=== PATIENT | male | born 1950 | race Caucasian/White ===

== ENCOUNTER 2023-03-02 11:15 | Outpatient (RCR) | payer MEDICARE, SELFPAY | END 2023-06-30 23:59 | disposition home or self-care (01) | PROVIDERS: PCP Student in an Organized Health Care Education/Training Program; Visit Provider Physician Assistant | DX: M48.02 Spinal stenosis, cervical region (principal); Z51.89 Encounter for other specified aftercare | CPT/HCPCS: 97035; 97140; 97162 ==

== ENCOUNTER 2023-11-16 14:27 | Emergency (ER) | payer MEDICARE, SELFPAY ==
[2023-11-16] VITALS (13 sets, daily range): BP systolic 157–184; BP diastolic 82–91; PULSE 63–74; RESP 16–18; TEMP 36.7; O2SAT 96–99; BMI 27.3
--- NOTE | 2023-11-16 14:59 | XR_ITS ---
Patient: ISAAC STORY Facility:?[facility] Patient ID:?[id number] Site Patient ID:?[id number]. Site :?1950 Study:?XRay-Chest 2V-11/16/2023 3:23:29 PM Ordering Physician:?DR. HE Final Report: INDICATION: FELL, CHEST/NECK PAIN TECHNIQUE: Chest 2 views COMPARISON: 06/07/2021 FINDINGS: Lungs clear with the exception of mild areas of scarring. Cardiac silhouette is mildly enlarged. There is tortuosity of the aorta. Chronic changes at the right shoulder. IMPRESSION: No acute findings. Dictated by Charles Sabillon MD @ 11/16/2023 3:53:42 PM Signed by:?Charles Sabillon MD @11/16/2023 3:53:42 PM (Electronic Signature)
--- NOTE | 2023-11-16 15:22 | ED_ITS ---
HPI - General Adult General Date Seen: 11/16/23 Chief complaint: Fall/Minor Trauma Stated complaint: Fell, chest/neck pain Time Seen by Provider: 11/16/23 15:20 History of Present Illness HPI narrative: Very pleasant 73-year-old male with a past medical history of cervical degenerative disc disease and arthritis, but otherwise generally pretty healthy. Uses medical marijuana, vitamins, but no other medications. No blood thinners. He had an inadvertent slip and fall on the ice when he was trying to clean up the snow in his driveway. He fell about 12 30 this afternoon. He struck forcefully on the ground and landed on his right side. He felt and heard a snap in his right anterolateral lower ribs. He also hit his head against the ground and was momentarily dazed. He does not think he lost consciousness. He broke his glasses but did not cut his face. Since falling he was able to get up on his own and walk back inside. He has had mild headache. Significant pain on the right posterolateral side of his neck but no pain radiating down his arm. Mild pain in the right distal clavicle and shoulder. His most significant pain is in the right anterolateral ribs. He is having tremendous pain with movement and with breathing. He took 800 mg ibuprofen at home but it is not helping with pain control. He is not short of breath. No bruising or rash on his ribs. No underlying lung disease. No mid or low back pain. No hip pain or pelvic pain. No injury to his left upper extremity. No injury to his legs. Related Data Allergies Allergy/AdvReac Type Severity Reaction Status Date / Time No Known Drug Allergies Allergy Verified 11/16/23 14:36 Exam Narrative: Exam Narrative: Constitutional: Appears well-developed and well-nourished. Alert. Conversant. Non toxic. He is uncomfortable and bracing his ribs with blankets. He politely declines pain meds because he wants to drive himself and his son home. Accompanied by his autistic adult age son. HENT: Head: Small abrasion on right lateral supraorbital ridge. No laceration.. No depressed skull fracture, Raccoon Eyes, Mack's sign, or hemotympanum. Face normal. TMs normal Nose: Nose normal. Mouth/Throat: Oral mucosa is clear and moist. no trismus. Pharynx normal. Tonsils symmetric. No tonsillar enlargement, erythema, or exudate. Eyes: Conjunctivae normal. EOM normal. Pupils equal, round, and reactive to light. No scleral icterus. Neck: He does have posterior tenderness most over the right cervical paraspinous muscles but also including the midline. No step-off. Normal range of motion. Neck supple. No tracheal deviation present. Cardiovascular: Normal rate, regular rhythm. No gallop. No friction rub. No murmur heard. Symmetric radial artery pulses Pulmonary/Chest: Effort normal. No stridor. No respiratory distress. No wheezes. No rales. No rhonchi . Marked right anterior lower rib edge tenderness no definite crepitus. Abdominal: Soft. Bowel sounds normal. No distension. No mass. He does have right upper quadrant tenderness, just inferior to where his ribs are painful.. No rebound. No guarding. Musculoskeletal: RUE: Normal range of motion. No tenderness. No deformity LUE: Normal range of motion. No tenderness. No deformity RLE: Normal range of motion. No edema. No tenderness. No deformity LLE: Normal range of motion. No edema. No tenderness. No deformity Neurological: Mental status normal. Attention normal. Alert and oriented x3. GCS 15. Memory normal. Speech fluent. Cognition normal. Cranial Nerves intact II-XII except I did not formally test gag or visual acuity. EOMI. Palate elevates symmetrically and tongue protrudes in the midline. Strength: 5/5 trapezius on the right and left 5/5 deltoid on the right and left 5/5 biceps on the right and left 5/5 triceps on the right and left 5/5 frequency checker on the right and left 5/5 thumb opposition on the right and le ft 5/5 finger abduction on the right and le ft 5/5 hip flexors (L3) on the right and le ft 5/5 quadriceps (L4) on the right and lef t 5/5 tibialis anterior on the right and l eft 5/5 EHL (L5) on the right and left 5/5 gastrocnemius (S1) on the right and left 5/5 hamstring on the right and left Sensation intact to light touch in both upper extremities (C4-T1) Sensation intact to light touch in Both lower extremities (L4-S1). Finger to nose and coordination normal. Gait normal. Skin: Skin is warm and dry. No rash noted. No pallor. Normal capillary refill. Psychiatric: Normal mood. Normal affect. Const: Vital Signs, click to edit/add: Vital Signs - 24 hr 11/16/23 14:29 Temperature 98.0 F Pulse Rate [Right Pulse Oximeter] 71 Respiratory Rate 16 Blood Pressure [Le ft Upper Arm] 159/83 H Pulse Oximetry 99 Oxygen Delivery Me thod Room Air Course Vital Signs Vital signs: Initial Vital Signs Temperature 98.0 F 11/16/23 14:29 Temperature Source Temporal Artery Scan 11/16/23 14:29 Pulse Rate 71 11/16/23 14:29 Pulse Rhythm Regular 11/16/23 14:29 Pulse Strength 3+ Normal 11/16/23 14:29 Respiratory Rate 16 11/16/23 14:29 Blood Pressure 159/83 H 11/16/23 14:29 Blood Pressure Mean 108 H 11/16/23 14:29 Blood Pressure Position Sitting 11/16/23 14:29 Pulse Oximetry 99 11/16/23 14:29 Oxygen Delivery Method Room Air 11/16/23 14:29 Vital Signs Temperature 98.0 F 11/16/23 14:29 Pulse Rate 71 11/16/23 14:29 Respiratory Rate 16 11/16/23 14:29 Blood Pressure 159/83 H 11/16/23 14:29 Pulse Oximetry 99 11/16/23 14:29 Oxygen Delivery Method Room Air 11/16/23 14:29 Temperature 98.0 F 11/16/23 14:29 Pulse Rate 71 11/16/23 14:29 Respiratory Rate 16 11/16/23 14:29 Blood Pressure 159/83 H 11/16/23 14:29 Pulse Oximetry 99 11/16/23 14:29 Oxygen Delivery Method Room Air 11/16/23 14:29 Medical Decision Making MDM Narrative Medical decision making narrative: Very pleasant 73-year-old gentleman came to the ER today for evaluation of injuries, specifically right anterolateral lower rib pain, after he had a mechanical slip and fall on the ice of his driveway this afternoon. He did hit his head and was briefly dazed but did not have loss of consciousness in the fall. He has mild headache but is otherwise neurologically intact. He is not anticoagulated. Given age and head trauma I have ordered a noncontrast head CT to evaluate for intracranial injuries. He also has an exacerbation of pre-existing neck pain that is primarily in the right cervical paraspinous muscles but also involves the midline. C-spine cannot be cleared by clinical criteria due to his midline pain. I have ordered a C-spine CT. He does not have any other evidence for pelvic fracture or other long bone extremity fracture. His primary site of pain in his right anterior lateral ribs. They are exquisitely tender. No clear evidence for fracture on exam. Chest x-ray shows no obvious rib fracture and no visible hemothorax or pneumothorax by my read. With the amount of tenderness he is having I am clinically very suspicious that he has at least 1 right-sided rib fracture. He is also tender the right upper quadrant. Unclear if this represents liver injury or just referred pain from the rib fracture. I have ordered a chest CT to further evaluate his rib fractures and rule out other internal injury such as occult pneumothorax, or liver injury. Kidney function is normal. Blood pressure is not hypotensive. Oxygen vitals are stable. Discussed with my partner Dr. Govea. He will follow up on the results of the CT of the patient's head, C-spine, and chest. If they are normal he will be able to discharge home. I have written presumptive prescriptions for hydrocodone (12 tablets) and Zofran for symptomatic support at home. Although he is quite uncomfortable, he politely declines any opiate analgesics here in the ER because he wants to drive his own vehicle home. Lab Data Labs: Lab Results 11/16/23 Range/Units 15:55 POC Creatinine 1.2 (0.6-1.3) mg/dl Discharge Plan Discharge Clinical Impression: Closed rib fracture Patient Disposition: Home, Self-Care Condition: Stable Instructions: Rib Fracture (ED) Additional Instructions: As we discussed, rib fractures can take several weeks to heal. Try to control the pain with hqjv-aim-txzldga medications such as ibuprofen or Tylenol. Use prescription pain killers ([place]) if needed. Use caution with prescription pain killers because they can cause drowsiness, dizziness, constipation, and can be addictive. Try to do deep breathing exercises a couple of times per day to help prevent pneumonia or other complications in your lungs. If you have any worsening pain, trouble breathing, cough, high fever, or any other new concerning symptoms come back to the ER right away to be rechecked. Follow Up/Referrals: GOLD ESQUIVEL DO [Primary Care Provider] - Stand Alone Forms: [employer] Info Instructions
--- NOTE | 2023-11-16 15:34 | CT_ITS ---
Patient: ISAAC STORY Facility:?[facility] Patient ID:?[id number] Site Patient ID:?[id number]. Site :?1950 Study:?CT-Spine Cervical WO-11/16/2023 5:08:00 PM Ordering Physician:ANISA Final Report: INDICATION: Fall, pain TECHNIQUE: CT cervical spine without contrast. COMPARISON: None FINDINGS: Multilevel degenerative changes are present. There is no fracture. The odontoid is intact. The anterior arch of C1 and occipital condyles are maintained. The mastoid air cells and middle ear cavities are within normal limits. Visualized upper ribs are intact. IMPRESSION: No cervical spine fracture. Please note that all CT scans at this facility use dose modulation, iterative reconstruction, and/or weight-based dosing when appropriate to reduce radiation dose to as low as reasonably achievable. Dictated by Charles Sabillon MD @ 11/17/2023 11:42:57 AM Signed by:?Charles Sabillon MD @11/17/2023 11:42:57 AM (Electronic Signature)
--- NOTE | 2023-11-16 15:34 | CT_ITS ---
Patient: ISAAC STORY Facility:?[facility] Patient ID:?[id number] Site Patient ID:?[id number]. Site :?1950 Study:?CT-Head WO-11/16/2023 5:06:29 PM Ordering Physician:ANISA Final Report: INDICATION: Fall COMPARISON: none TECHNIQUE: A CT volumetric acquisition was performed of the brain without IV contrast. Please note that all CT scans at this facility use dose modulation, iterative reconstruction, and/or weight-based dosing when appropriate to reduce radiation dose to as low as reasonably achievable. FINDINGS: No intracranial hemorrhage is present. Chronic white matter changes noted. No extra-axial fluid collection. No hydrocephalus or midline shift. There is no fracture. Sinuses are clear. IMPRESSION: No intracranial hemorrhage. Please note that all CT scans at this facility use dose modulation, iterative reconstruction, and/or weight-based dosing when appropriate to reduce radiation dose to as low as reasonably achievable. Dictated by Charles Sabillon MD @ 11/17/2023 11:41:13 AM Signed by:?Charles Sabillon MD @11/17/2023 11:41:13 AM (Electronic Signature)
--- NOTE | 2023-11-16 15:34 | CT_ITS ---
Patient: ISAAC STORY Facility:?[facility] Patient ID:?[id number] Site Patient ID:?[id number]. Site :?1950 Study:?CT-Chest W/ ISOVUE 370-11/16/2023 5:09:25 PM Ordering Physician:ANISA Final Report: Indication: RIGHT LOWER CHEST PAIN FALL Technique: Postcontrast CT chest. 75 cc Isovue 370 intravenous contrast. Please note that all CT scans at this facility use dose modulation, iterative reconstruction, and/or weight-based dosing when appropriate to reduce radiation dose to as low as reasonably achievable. Comparison: 12/10/2019 Findings: Mild dependent areas of atelectasis or scarring noted within both lung bases. No pleural effusion, pulmonary contusion or pneumothorax. No infiltrate or edema. The thyroid is unremarkable. Atherosclerotic changes. Simple cysts regarding both visualized kidneys. No hiatal hernia. No fracture. Impression: No acute findings. The right lower ribcage is intact. Please note that all CT scans at this facility use dose modulation, iterative reconstruction, and/or weight-based dosing when appropriate to reduce radiation dose to as low as reasonably achievable. Dictated by Charles Sabillon MD @ 11/17/2023 2:34:14 PM Signed by:?Charles Sabillon MD @11/17/2023 2:34:14 PM (Electronic Signature)
[2023-11-16 16:01] LABS: Creatinine, Point-of-Care* 1.2 mg/dl (0.6-1.3)
== END 2023-11-16 19:59 | disposition home or self-care (01) ==
PROVIDERS: Emergency Medicine; Emergency Provider Emergency Medicine Emergency Medical Services; PCP Student in an Organized Health Care Education/Training Program
DX: S22.31XA Fracture of one rib, right side, initial encounter for closed fracture (principal); W00.9XXA Unspecified fall due to ice and snow, initial encounter; Y93.H1 Activity, digging, shoveling and raking
CPT/HCPCS: 70450; 71046; 71260; 72125; 82565; 93005; 99283; 99284; 99285; Q9967

== ENCOUNTER 2024-02-16 11:00 | Outpatient (RCR) | payer MEDICARE, SELFPAY | END 2024-05-28 16:24 | disposition home or self-care (01) | PROVIDERS: PCP Student in an Organized Health Care Education/Training Program; Visit Provider Family Medicine Addiction Medicine | DX: M47.812 Spondylosis without myelopathy or radiculopathy, cervical region (principal); M54.12 Radiculopathy, cervical region; M25.511 Pain in right shoulder; M54.2 Cervicalgia; G89.29 Other chronic pain; Z51.89 Encounter for other specified aftercare | CPT/HCPCS: 97032; 97035; 97140; 97162 ==

== ENCOUNTER 2024-04-25 05:33 | Outpatient (CLI) | payer MEDICARE, SELFPAY | END 2024-04-25 05:34 | disposition home or self-care (01) | LOC: AMB 04-29 18:59 | PROVIDERS: PCP Student in an Organized Health Care Education/Training Program; Visit Provider Family Medicine | DX: S79.911A Unspecified injury of right hip, initial encounter (principal); W01.0XXA Fall on same level from slipping, tripping and stumbling without subsequent striking against object, initial encounter; Y92.008 Other place in unspecified non-institutional (private) residence as the place of occurrence of the external cause | CPT/HCPCS: A0425; A0427 ==

== ENCOUNTER 2024-04-25 06:13 | Emergency (ER) | payer MEDICARE, SELFPAY ==
[2024-04-25] VITALS (7 sets, daily range): BP systolic 154–168; BP diastolic 78–84; PULSE 56–65; RESP 18–20; TEMP 36.8; O2SAT 95–99; BMI 26.5
--- NOTE | 2024-04-25 06:26 | ED_ITS ---
HPI - General Adult General Chief complaint: Hip Injury/Pain Stated complaint: Hip pain Time Seen by Provider: 04/25/24 06:25 History of Present Illness HPI narrative: CC: Right Hip Pain pt. was traveling 5 days ago when he fell hurting left hip. comes in today d/t right hip pain. h/o bilateral hip surgery. able to put a little weight on right leg. pedal pulses intact bilaterally. ems gave 50mcg fentanyl which brought pain from 10 to 5. 74-year-old man presenting to the emergency department with concern of hip pain specifically the right. He 5 days ago he thought he had just moved strangely that maybe he had caught it and since then it his only escalated in pain. Stay though he did have a mild fall in the grass ?rolled? but that was not really something he thought probably caused much trouble for him or was injurious. Posterior lateral hip is just in very painful. When he goes to stand or straightens his leg it just spasms. No back pain and no radiating pain beyond the knee. History of bilateral hip replacements. No redness fever or swelling apart from the spasming Related Data Home Medications ?Medication ?Instructions ?Recorded ?Confirmed allopurinol 300 mg tablet 300 mg PO Q12H 04/25/24 04/25/24 tamsulosin 0.4 mg capsule 0.4 mg PO DAILY 04/25/24 04/25/24 Allergies Allergy/AdvReac Type Severity Reaction Status Date / Time doxycycline Allergy Severe Hives, Verified 04/25/24 08:18 Vomiting Review of Systems Status of ROS: Reports: 6 or more systems reviewed and unremarkable except as noted in History and below PFSH [facility] Social History Smoking Status: Never smoker Second hand tobacco smoke exposure: No How often do you have a drink containing alcohol: never AUDIT-C Alcohol total score: 0 Non-prescribed substance use: denies use Exam Narrative: Exam Narrative: Pleasant. NAD. Skin is warm and dry. No swelling or erythema. Abdomen is soft. Back is nontender. Is well-perfused peripherally. Well muscled. There is some discomfort to palpation in the posterior lateral right hip. Pain escalates a good deal when he tries to move his thigh though not with minor rotation. When he activates his muscles is where he starts to have more pain. Const: Vital Signs, click to edit/add: Vital Signs - 24 hr 04/25/24 06:16 04/25/24 06:17 04/25/24 06:36 Temperature 98.2 F Pulse Rate [Bilate ral Posterior Tibi al] 65 Pulse Rate [Right Pulse Oximeter] 65 Respiratory Rate 20 Blood Pressure [Le ft Upper Arm] 155/83 H Pulse Oximetry 99 99 Oxygen Delivery Me thod Room Air 04/25/24 06:38 04/25/24 08:17 04/25/24 08:36 Temperature 98.2 F Pulse Rate [Bilate ral Posterior Tibi al] Pulse Rate [Right Pulse Oximeter] 58 L Respiratory Rate 18 Blood Pressure [Le ft Upper Arm] 168/78 H Pulse Oximetry 95 Oxygen Delivery Me thod Room Air Documenting provider has reviewed patient's vital signs: yes Course Vital Signs Vital signs: Initial Vital Signs Pulse Rate 65 04/25/24 06:16 Vital Signs Pulse Rate 65 04/25/24 06:16 Temperature 98.2 F 04/25/24 06:38 Pulse Rate 58 L 04/25/24 08:17 Respiratory Rate 18 04/25/24 08:17 Blood Pressure 168/78 H 04/25/24 08:36 Pulse Oximetry 95 04/25/24 08:17 Oxygen Delivery Method Room Air 04/25/24 08:17 Medications Administered Medications: Discontinued Medications Generic Name Dose Route Start Last Admin Trade Name Keatonq PRN Reason Stop Dose Admin Hydrocodone Bitart/Acetaminophen 2 tab 04/25/24 08:01 04/25/24 08:16 Hydrocodone-Acetamin 5-325 Mg 1 Tab PO 04/25/24 08:02 2 tab ONCE ONE Administration Hydromorphone HCl 0.5 mg 04/25/24 06:31 04/25/24 06:41 Hydromorphone 0.5 Mg/0.5 Ml Inj IVP 04/25/24 06:32 0.5 mg ONCE ONE Administration Hydromorphone HCl 0.5 mg 04/25/24 09:22 04/25/24 09:43 Hydromorphone 0.5 Mg/0.5 Ml Inj IVP 04/25/24 09:23 0.5 mg ONCE ONE Administration Sodium Chloride 1,000 mls @ 1,000 mls/hr 04/25/24 06:31 04/25/24 07:03 0.9 % Sodium Chloride 1000 Ml IV 04/25/24 07:30 1,000 mls/hr .Q1H ONE Administration Ketorolac Tromethamine 30 mg 04/25/24 06:31 04/25/24 06:38 Ketorolac 30 Mg/Ml Inj IVP 04/25/24 06:32 30 mg ONCE ONE Administration Medical Decision Making MDM Narrative Medical decision making narrative: This is not appear to be a vascular issue. Has bilateral hip replacements so would seem that there is less to go wrong. Perhaps hardware has loosened or there is some subtle fracture, but there was no major traumatic event. Perhaps this is a bursal irritation resulting secondary muscle spasm; greater trocha nteric bursitis. Is not reliably reproducible in typical area of palpation for this. Do not see any outward indication of infection. Will do x-ray looking for anything unusual By my read x-rays of the right hip and pelvis do show intact bilateral hardware with extensive bony arthritic changes Did receive pain medication. Was up to the bathroom and causing a great deal of pain with ambulation. On repeat exam does feel a tight with flexion. Still with not really reproducible pain. Exacerbated primarily with movement of his leg but particular with weight-bearing. Not convinced that this is within the joint itself. Not sure that CT imaging would be helpful here in part due to all the scattered that would be created. I did speak with orthopedics on-call. Hoping to arrange follow-up. Will be giving a couple tabs of [place] and crutches and reassessing mobility and anticipating close orthopedic follow-up. Gave handout on trochanteric bursitis CBC is reassuring for lack of infection though I suppose does not exactly exclude that. See patient discharge plan for further discussion. Medical Records Medical records reviewed: Yes I reviewed the patient's medical records Lab Data Labs: Lab Results 04/25/24 Range/Units 09:15 WBC 6.21 (4.50-11.00) K/uL RBC 4.54 (4.30-5.90) m/uL Hgb 14.1 (13.5-17.5) gm/dL Hct 41.9 (37.0-53.0) % MCV 92 (80-100) fL MCH 31 (26-34) pg MCHC 34 (32-36) gm/dL RDW Coeff of Christina 12.4 (11.5-15.5) % Plt Count 161 (140-440) K/uL Neut % (Auto) 76.9 H (42.0-72.0) % Lymph % (Auto) 12.7 L (20-44) % Dougherty % (Auto) 7.6 (0.0-11.0) % Eos % (Auto) 2.1 (0.0-7.0) % Baso % (Auto) 0.5 (0.0-3.0) % Neut # (Auto) 4.80 (1.7-7.0) K/uL Lymph # (Auto) 0.80 L (0.90-2.90) K/uL Dougherty # (Auto) 0.47 (0.00-0.90) K/UL Eos # (Auto) 0.13 (0.00-0.50) K/uL Baso # (Auto) 0.03 (0.00-0.30) K/uL Abs Immat Gran (auto) 0.01 (0.00-0.30) K/uL Imm/Tot Granulo (auto) 0.2 % Discharge Plan Discharge Clinical Impression: Hip pain Patient Disposition: Home w/ Parent or Adult Condition: Stable Additional Instructions: I spoke with orthopedics today. I anticipate them checking back with you in a day or so. I would call them to schedule follow-up as soon as possible. Phone number [phone] (I now hear you have an appointment today. Excellent) Hopefully with crutches can decrease some of the irritation that is resulting in your hip; give it a chance to rest. Percocet from [facility] Can take up to 800 mg of ibuprofen or up to 1000 mg of acetaminophen per dose. Alternative to ibuprofen you might take up to 500 mg of naproxen 2 times daily. Remember that each tablet of Percocet contains 325 mg of acetaminophen. Prescriptions: No Action tamsulosin 0.4 mg capsule 0.4 mg PO DAILY allopurinol 300 mg tablet 300 mg PO Q12H Follow Up/Referrals: GOLD ESQUIVEL DO [Primary Care Provider] - Stand Alone Forms: [employer] Info Instructions
--- NOTE | 2024-04-25 06:31 | CRLHL7_ITS ---
For Patients: As a result of the Century Cures Act, medical imaging exams and procedure reports are released immediately into your electronic medical record. You may view this report before your referring provider. If you have questions, please contact your health care provider. INDICATION: Right hip pain COMPARISON: 03/01/2018 TECHNIQUE: AP pelvis, AP right hip, frog-leg right hip. FINDINGS: Limited positioning for the lateral view. Bilateral total hip arthroplasties. No acute or healing fracture. No periprosthetic fracture on the right. The entire component of the left femoral stem is not included in the field of view. Normal prosthesis alignment. Ekww-xbncddl-rgoi-right periprosthetic heterotopic ossification. Enthesitis around the pelvis. No destructive focal bone lesions. Soft tissues are normal. IMPRESSION: Right hip arthroplasty. No loosening or acute complications. Dictated by Liliana Dougherty MD @ 04/25/2024 7:06:58 AM (Electronically Signed)
[2024-04-25] MEDS: KETOROLAC 30 MG/ML inj IVP (06:38)
[2024-04-25] MEDS: HYDROmorphone 0.5 mg/0.5 ml inj IVP ×2 (06:41→09:43)
[2024-04-25] MEDS: 0.9 % SODIUM CHLORIDE 1000 ml 1,000 ML IV (07:03)
[2024-04-25] MEDS: HYDROCODONE-ACETAMIN 5-325 MG 1 TAB 2 TAB PO (08:16)
[2024-04-25 09:34] LABS: Basophils Absolute Auto 0.03 K/uL (0.00-0.30); Basophils Percent Auto 0.5 % (0.0-3.0); Eosinophils Absolute Auto 0.13 K/uL (0.00-0.50); Eosinophils Percent Auto 2.1 % (0.0-7.0); Hematocrit 41.9 % (37.0-53.0); Hemoglobin* 14.1 gm/dL (13.5-17.5); Immature Granulocytes Abs Auto 0.01 K/uL (0.00-0.30); Immature Granulocytes Pct Auto 0.2 %; Lymphocytes Percent Auto 12.7 % (20-44); Mean Corpuscular HGB Conc 34 gm/dL (32-36); Mean Corpuscular Hemoglobin 31 pg (26-34); Mean Corpuscular Volume 92 fL (80-100); Monocytes Absolute Auto 0.47 K/UL (0.00-0.90); Monocytes Percent Auto 7.6 % (0.0-11.0); Neutrophils Percent Auto 76.9 % (42.0-72.0); Platelet Count* 161 K/uL (140-440); RDW Coefficient of Variation % 12.4 % (11.5-15.5); Red Blood Count 4.54 m/uL (4.30-5.90); Slide Review Reflex No; White Blood Count* 6.21 K/uL (4.50-11.00)
== END 2024-04-25 10:22 | disposition home or self-care (01) ==
PROVIDERS: Emergency Provider Family Medicine; PCP Student in an Organized Health Care Education/Training Program
DX: M25.551 Pain in right hip (principal)
CPT/HCPCS: 36415; 73502; 85025; 94761; 96374; 96375; 96376; 99284; A9270; J1170; J1885; J7030

== ENCOUNTER 2024-06-07 11:00 | Outpatient (RCR) | payer MEDICARE, SELFPAY | END 2024-10-05 23:59 | disposition home or self-care (01) | PROVIDERS: PCP Student in an Organized Health Care Education/Training Program; Visit Provider Family Medicine | DX: M54.16 Radiculopathy, lumbar region (principal); M25.551 Pain in right hip; M54.50 Low back pain, unspecified; M54.30 Sciatica, unspecified side; M79.651 Pain in right thigh; R29.898 Other symptoms and signs involving the musculoskeletal system; Z51.89 Encounter for other specified aftercare | CPT/HCPCS: 97110; 97140; 97162 ==

== ENCOUNTER 2024-09-30 11:15 | Outpatient (RCR) | payer MEDICARE, SELFPAY ==
--- OUTSIDE RECORDS SUMMARY | 2024-09-19 11:21 | XMS_ITS ---
Author Organization [facility] - Primary Address [address] [place] [id number] Care Team Providers Care Clerical Production Worker Name Role Phone Different, PCP Primary Care Provider Villa Lovell Unavailable [phone] ALLERGIES No Known Allergies REASON FOR VISIT recert, Chronic pain MEDICATIONS Medication SIG (Take, Route, Frequency, Duration) Notes Start Date End Date Status albuterol 90 mcg/inh 2 puff(s) inhaled e very 6 hours for 30 day(s) Active Symbicort 160 mcg-4.5 mcg/inh 2 puff(s) inhaled 2 times a day for 30 day(s) Active Hydrocod/APAP 5/325MG 1 TO 2 TAB(S) ORAL LY Q 8 HOURS as needed Active allopurinol 300 mg 1/2 tab orally once a day Active timolol ophthalmic hemihydrate 0.5% 1 gtt in each affected eye 2 times a day for 30 day(s) Active latanoprost ophthalmic 0.005% 1 gtt in each eye once a day (in the evening) for 30 day(s) Active Encounters Encounter Location Date Provider Diagnosis [facility] - Primary [address] [place] [address] 10/24/2023 Villa Perez Chronic pain syndrome G89.4 ASSESSMENTS Encounter Date Diagnosis Assessment Notes Treatment Notes Treatment Clinical Notes 10/24/2023 Chronic pain syndrome (ICD-10 - G89.4) Recertified for medical cannabis on [facility] cannabis website according to [place] law Discussed orthopedic pillows and acupuncture, referred to Erlinda Eldridge PLAN OF TREATMENT Treatment Notes Assessment Notes Chronic pain syndrome Recertified for medical cannabis on [facility] cannabis website according to [place] herrera Discussed orthopedic pillows and acupuncture, referred to Erlinda Eldridge Next Appt Details Follow Up: 1 Year, Reason:
--- OUTSIDE RECORDS SUMMARY | 2024-09-19 11:21 | XMS_ITS ---
Author Organization [facility] - Primary Address [address] [place] [id number] Care Team Providers Care Network Associate Name Role Phone Different, PCP Primary Care Provider Villa Lovell Unavailable [phone] ALLERGIES No Known Allergies REASON FOR VISIT phone recert, Chronic pain MEDICATIONS Medication SIG (Take, Route, Frequency, Duration) Notes Start Date End Date Status albuterol 90 mcg/inh 2 puff(s) inhaled e very 6 hours for 30 day(s) Not-Taking Hydrocod/APAP 5/325MG 1 TO 2 TAB(S) ORAL LY Q 8 HOURS as needed Active latanoprost ophthalmic 0.005% 1 gtt in each eye once a day (in the evening) for 30 day(s) Active timolol ophthalmic hemihydrate 0.5% 1 gtt in each affected eye 2 times a day for 30 day(s) Active allopurinol 300 mg 1/2 tab orally once a day Active Symbicort 160 mcg-4.5 mcg/inh 2 puff(s) inhaled 2 times a day for 30 day(s) Not-Taking Encounters Encounter Location Date Provider Diagnosis [facility] - Primary [address] [place] [address] 08/20/2024 Villa Perez Chronic pain syndrome G89.4 ASSESSMENTS Encounter Date Diagnosis Assessment Notes Treatment Notes Treatment Clinical Notes 08/20/2024 Chronic pain syndrome (ICD-10 - G89.4) Recertified for medical cannabis on [facility] cannabis website according to [place] law PLAN OF TREATMENT Treatment Notes Assessment Notes Chronic pain syndrome Recertified for me dical cannabis on [facility] cannabis website according to [place] law Next Appt Details Follow Up: prn, Reason:
--- OUTSIDE RECORDS SUMMARY | 2024-09-19 11:22 | XMS_ITS | Continuity of Care Document ---
Author Name [facility] Organization [facility] Care Team Providers Care Airline Ticket Agent Name Role Phone [facility] Unavailable Unavailable Problems Combined list of problems from Department of Defense and Veterans Affairs facilities. It does not include entries that were removed or entered in error. Problem Status Onset Date Problem Type Date of Resolution Comments Source Exposure to potentially hazardous substance ([facility] [id number]) Active 12/08/19 24 Condition Dec 08, 2023 Entered By: GET MCPHERSON Comment: [facility] Documentation Initiative [facility] History of venous thromboembolic disease Active 10/02/19 21 Condition Sep 10, 2021 Entered By: IFTIKHAR JACK Comment: H/O PE in setting of COVID (06/2021) [facility] History of inactive tuberculosis Active 10/02/19 19 Condition Dec 16, 2021 Entered By: IFTIKHAR JACK Comment: S/P INH/thambutol/r ifampin/pyrzina mide for latent TB in 2018 [facility] Asthma Active Condition [facility] Cervical spondylosis Active Condition [facility] Chronic low back pain (SNOMED CT 141066085) Active Condition [facility] Glaucoma Active Condition [facility] Gout (SNOMED CT 97111913) Active Condition [facility] Hypertension (SNOMED CT 00229552) Active Condition [facility] Irritable bowel syndrome (SNOMED CT 76281214) Active Condition [facility] Osteoarthritis Active Condition Sep 012020 Entered By: IFTIKHAR JACK Comment: 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 Entered By: IFTIKHAR JACK Comment: S/P left total hip in 2019 [facility] Shoulder pain Active Condition [facility] Diagnosis: ICD-10-CM L03.039 Cellulitis of unspecified toe Active Diagnosis [facility] Diagnosis: ICD-10-CM M47.22 Other spondylosis with radiculopathy, cervical region Active Diagnosis [facility] Medications Combined list of outpatient medications from Department of Defense and Veterans Affairs facilities.Medications provided include 1) outpatient medications from the last 15 months, and 2) patient-reported medications. Medication Details Route Status Patient Instructions Prescription Expires Prescription Number Last Dispense Date Ordering Provider Order Date Order Qty Source ALBUTEROL 90MCG/ACTUA T (CFC-F) INHL,ORAL,8 .5GM DOSE COUNTER INHALE 1-2 PUFFS BY INHALATI ON EVERY 4 HOURS NEEDED FOR SHORTNES S OF BREATH SHAKE WELL (FOR IMMEDIAT E RELIEF) RESPIR ATORY (INHAL ATION) DISCONT INUED 07/14/2024 [id number] LUIS BENSON 2022 2 [facility] ALLOPURINOL TAB TAKE 150MG BY MOUTH EVERY DAY ORAL ACTIVE TEA GRIFFIN 2023 [facility] BUDESONIDE/ FORMOTEROL INHL,ORAL INHALE BY INHALATI ON RESPIR ATORY (INHAL ATION) ACTIVE TEA GRIFFIN 2023 [facility] CEFADROXIL 500MG CAP TAKE 2 CAPSULES BY MOUTH TWICE A DAY ORAL ACTIVE TEA GRIFFIN 2023 [facility] FLUTICASONE 100MCG/SALM ETEROL 50MCG INHL,ORAL,D ISKUS,60 INHALE 1 PUFF BY INHALATI ON TWICE A DAY *RINSE MOUTH AFTER EACH USE* RESPIR ATORY (INHAL ATION) DISCONT INUED 07/14/2024 [id number] LUIS BENSON 2022 3 [facility] HYDROCODONE 5/ACETAMINO PHEN 325MG TAB TAKE BY MOUTH ORAL ACTIVE TEA GRIFFIN 2023 [facility] LATANOPROST 0.005% SOLN,OPH INSTILL 1 DROP IN BOTH EYES AT BEDTIME OPHTHA LMIC ACTIVE DENZEL JACK 2021 [facility] MUPIROCIN 2% OINT,TOP APPLY THIN LAYER TOPICALL Y THREE TIMES A DAY TOPICA L ACTIVE TEA GRIFFIN 2023 [facility] SILDENAFIL CITRATE 100MG TAB TAKE ONE TABLET BY MOUTH PRN_EREC ORAL ACTIVE DIAMOND MOSS H 2020 [facility] SILDENAFIL TAB TAKE BY MOUTH ONCE NEEDED ORAL ACTIVE TEA GRIFFIN 2023 [facility] TAMSULOSIN HCL 0.4MG CAP TAKE 1 CAPSULE BY MOUTH EVERY DAY ORAL ACTIVE GABY TEA M 2023 [facility] TIMOLOL MALEATE 0.5% SOLN,OPH,0. 3ML INSTILL 1 DROP IN BOTH EYES EVERY DAY OPHTHA LMIC ACTIVE DENZLE JACK R 2021 [facility] TIOTROPIUM 1.25MCG/ACT UAT INHL,ORAL,6 0D,4GM INHALE TWO PUFFS BY INHALATI ON EVERY DAY TO PREVENT TROUBLE BREATHIN G RESPIR ATORY (INHAL ATION) [facility] [id number] 3 LUIS BENSON 2022 3 [facility] TIZANIDINE HCL 4MG TAB TAKE ONE TABLET BY MOUTH EVERY 6 HOURS NEEDED ORAL ACTIVE GABY TEA 2023 [facility] Allergies, Adverse Reactions, Alerts Combined list of allergies from Department of Defense and Veterans Affairs facilities. It does not include entries that were removed or entered in error. Substance Category Reaction Severity Reaction type Status Date Reported Comments Source DOXYCYCLINE Propensity to adverse reactions to drug (finding) Anaphylaxis active 1 [facility] Immunizations Combined list of available immunizations from the Department of Defense and Veterans Affairs facilities. Immunization Series Date Given Administered By Site Reaction Lot Number CVX Code Drug Division Operations Manager Status Comments Source INFLUENZA, INJECTABLE, QUADRIVALENT, PRESERVATIVE FREE 2019 150 complet ed [facility] PNEUMOCOCCAL POLYSACCHARID E [id number] 2019 33 complet ed MerckShar p [id number] [facility] PNEUMOCOCCAL CONJUGATE PCV 13 2019 133 complet ed [facility] INFLUENZA, INJECTABLE, QUADRIVALENT, PRESERVATIVE FREE 2019 150 complet ed [facility] PNEUMOCOCCAL CONJUGATE PCV 13 2018 133 complet ed wyeth [id number] Exp. 11/22 [facility] HEP A-HEP B 2017 104 complet ed [facility] HEP A-HEP B 2017 104 complet ed [facility] HEP A-HEP B 2016 104 complet ed [facility] INFLUENZA, HIGH DOSE SEASONAL 2016 135 complet ed [facility] TYPHOID, VICPS 2016 101 complet ed [facility] INFLUENZA, HIGH DOSE SEASONAL 2015 135 complet ed [facility] TDAP 2013 115 complet ed glaxosmit hkline; [id number]; 6 [facility] INFLUENZA, SEASONAL, INJECTABLE 2012 141 complet ed [facility] TDAP 2012 115 complet ed [facility] ZOSTER LIVE 2011 121 complet ed merck 1733aa,11/05/2012 [facility] TDAP 2008 115 complet ed [facility] INFLUENZA, SEASONAL, INJECTABLE 2007 141 complet ed [facility] TD(ADULT) UNSPECIFIED FORMULATION 2005 139 complet ed [facility] Results Combined list of recent chemistry, hematology and other laboratory results from Department of Defense and Veterans Affairs, ranging from 15 months to all on record, depending upon the facility. Order Name Results Value Reference Range Date Interpretation Specimen Comments Source LIPID PANEL,NON -FASTING CHOLESTEROL [MASS/VOLUM E] IN SERUM OR PLASMA 160 mg/dL <199 - 199 07/25 Specimen Type: PLASMA No comment entered. Ordering Provider: JAQUAN MCFADDEN Report Released Date/Time: Jul 23, 2024 07:54 PM Reporting Lab: [facility] [address] Performing Lab: [facility] [address] [facility] LIPID PANEL,NON -FASTING CHOLESTEROL IN HDL [MASS/VOLUM E] IN SERUM OR PLASMA 44 mg/dL 40 07/25 Specimen Type: PLASMA No comment entered. Ordering Provider: JAQUAN MCFADDEN Report Released Date/Time: Jul 23, 2024 07:54 PM Reporting Lab: [facility] [address] Performing Lab: [facility] [address] [place] [facility] LIPID PANEL,NON -FASTING CHOLESTEROL IN LDL [MASS/VOLUM E] IN SERUM OR PLASMA BY CALCULATION 85 mg/dL <99 - 99 07/25 Specimen Type: PLASMA No comment entered. Ordering Provider: JAQUAN MCFADDEN Report Released Date/Time: Jul 23, 2024 07:54 PM Reporting Lab: [facility] [address] Performing Lab: [facility] [address] [place] [facility] LIPID PANEL,NON -FASTING CHOLESTEROL IN VLDL [MASS/VOLUM E] IN SERUM OR PLASMA BY CALCULATION 31 mg/dL <29 - 29 07/25 H Specimen Type: PLASMA No comment entered. Ordering Provider: JAQUAN MCFADDEN Report Released Date/Time: Jul 23, 2024 07:54 PM Reporting Lab: [facility] [address] Performing Lab: [facility] [address] [place] [facility] LIPID PANEL,NON -FASTING CHOLESTEROL NON HDL [MASS/VOLUM E] IN SERUM OR PLASMA 116 mg/dL <129 - 129 07/25 Specimen Type: PLASMA No comment entered. Ordering Provider: JAQUAN MCFADDEN Report Released Date/Time: Jul 23, 2024 07:54 PM Reporting Lab: [facility] [address] Performing Lab: [facility] [address] [place] [facility] LIPID PANEL,NON -FASTING TRIGLYCERID E [MASS/VOLUM E] IN SERUM OR PLASMA 155 mg/dL <149 - 149 07/25 H Specimen Type: PLASMA No comment entered. Ordering Provider: JAQUAN MCFADDEN Report Released Date/Time: Jul 23, 2024 07:54 PM Reporting Lab: [facility] [address] Performing Lab: [facility] [address] [place] [facility] CBC LEUKOCYTES [#/VOLUME] IN BLOOD BY AUTOMATED COUNT 6.2 4.0 - 11.0 07/25 Specimen Type: BLOOD No comment entered. Ordering Provider: JAQUAN MCFADDEN Report Released Date/Time: Jul 23, 2024 07:54 PM Reporting Lab: [facility] [address] Performing Lab: [facility] [address] [place] [facility] CBC ERYTHROCYTE S [#/VOLUME] IN BLOOD BY AUTOMATED COUNT 4.44 4.60 - 6.20 07/25 L Specimen Type: BLOOD No comment entered. Ordering Provider: JAQUAN MCFADDEN Report Released Date/Time: Jul 23, 2024 07:54 PM Reporting Lab: [facility] [address] Performing Lab: [facility] [phone] [place] [facility] CBC HEMOGLOBIN [MASS/VOLUM E] IN BLOOD 14.1 g/dL 13.5 - 17.9 07/25 Specimen Type: BLOOD No comment entered. Ordering Provider: JAQUAN MCFADDEN Report Released Date/Time: Jul 23, 2024 07:54 PM Reporting Lab: [facility] [address] Performing Lab: [facility] [address] [place] [facility] CBC HEMATOCRIT [VOLUME FRACTION] OF BLOOD BY AUTOMATED COUNT 42.1 41.0 - 54.0 07/25 Specimen Type: BLOOD No comment entered. Ordering Provider: JAQUAN MCFADDEN Report Released Date/Time: Jul 23, 2024 07:54 PM Reporting Lab: [facility] [address] Performing Lab: [facility] [address] [place] [facility] CBC MCV [ENTITIC VOLUME] BY AUTOMATED COUNT 94.8 fL 80.0 - 100.0 07/25 Specimen Type: BLOOD No comment entered. Ordering Provider: JAQUAN MCFADDEN Report Released Date/Time: Jul 23, 2024 07:54 PM Reporting Lab: [facility] [address] Performing Lab: [facility] [address] [place] [facility] CBC MCH [ENTITIC MASS] BY AUTOMATED COUNT 31.8 pg 27.0 - 33.0 07/25 Specimen Type: BLOOD No comment entered. Ordering Provider: JAQUAN MCFADDEN Report Released Date/Time: Jul 23, 2024 07:54 PM Reporting Lab: [facility] [address] Performing Lab: [facility] [address] [place] [facility] CBC MCHC [MASS/VOLUM E] BY AUTOMATED COUNT 33.5 g/dL 32.0 - 37.5 07/25 Specimen Type: BLOOD No comment entered. Ordering Provider: JAQUAN MCFADDEN Report Released Date/Time: Jul 23, 2024 07:54 PM Reporting Lab: [facility] [address] Performing Lab: [facility] [address] [facility] CBC PLATELETS [#/VOLUME] IN BLOOD BY AUTOMATED COUNT 199 150 - 400 07/25 Specimen Type: BLOOD No comment entered. Ordering Provider: JAQUAN MCFADDEN Report Released Date/Time: Jul 23, 2024 07:54 PM Reporting Lab: [facility] [address] Performing Lab: [facility] [address] [place] [facility] CBC PLATELET MEAN VOLUME [ENTITIC VOLUME] IN BLOOD BY AUTOMATED COUNT 10.0 fL 9.1 - 13.0 07/25 Specimen Type: BLOOD No comment entered. Ordering Provider: JAQUAN MCFADDEN Report Released Date/Time: Jul 23, 2024 07:54 PM Reporting Lab: [facility] [address] Performing Lab: [facility] [address] [place] [facility] CBC ERYTHROCYTE DISTRIBUTIO N WIDTH [RATIO] BY AUTOMATED COUNT 13.0 11.5 - 14.5 07/25 Specimen Type: BLOOD No comment entered. Ordering Provider: JAQUAN MCFADDEN Report Released Date/Time: Jul 23, 2024 07:54 PM Reporting Lab: [facility] [address] Performing Lab: [facility] [address] [place] [facility] BASIC METABOLIC PANEL+MG CREATININE [MASS/VOLUM E] IN SERUM OR PLASMA 1.0 mg/dL 0.7 - 1.2 07/25 Specimen Type: PLASMA No comment entered. Ordering Provider: JAQUAN MCFADDEN Report Released Date/Time: Jul 23, 2024 07:54 PM Reporting Lab: [facility] [address] Performing Lab: [facility] [address] [place] [facility] BASIC METABOLIC PANEL+MG UREA NITROGEN [MASS/VOLUM E] IN SERUM OR PLASMA 16 mg/dL 8 - 26 07/25 Specimen Type: PLASMA No comment entered. Ordering Provider: JAQUAN MCFADDEN Report Released Date/Time: Jul 23, 2024 07:54 PM Reporting Lab: [facility] [address] Performing Lab: [facility] [address] [place] [facility] BASIC METABOLIC PANEL+MG GLUCOSE [MASS/VOLUM E] IN SERUM OR PLASMA 82 mg/dL 70 - 100 07/25 Specimen Type: PLASMA No comment entered. Ordering Provider: JAQUAN MCFADDEN Report Released Date/Time: Jul 23, 2024 07:54 PM Reporting Lab: [facility] [address] Performing Lab: [facility] [address] [place] [facility] BASIC METABOLIC PANEL+MG SODIUM [MOLES/VOLU ME] IN SERUM OR PLASMA 140 mmol/L 136 - 145 07/25 Specimen Type: PLASMA No comment entered. Ordering Provider: JAQUAN MCFADDEN Report Released Date/Time: Jul 23, 2024 07:54 PM Reporting Lab: [facility] [address] Performing Lab: [facility] [address] [place] [facility] BASIC METABOLIC PANEL+MG POTASSIUM [MOLES/VOLU ME] IN SERUM OR PLASMA 4.6 mmol/L 3.5 - 5.1 07/25 Specimen Type: PLASMA No comment entered. Ordering Provider: JAQUAN MCFADDEN Report Released Date/Time: Jul 23, 2024 07:54 PM Reporting Lab: [facility] [address] Performing Lab: [facility] [address] [place] [facility] BASIC METABOLIC PANEL+MG CHLORIDE [MOLES/VOLU ME] IN SERUM OR PLASMA 107 mmol/L 98 - 107 07/25 Specimen Type: PLASMA No comment entered. Ordering Provider: JAQUAN MCFADDEN Report Released Date/Time: Jul 23, 2024 07:54 PM Reporting Lab: [facility] [address] Performing Lab: [facility] [address] [place] [facility] BASIC METABOLIC PANEL+MG CARBON DIOXIDE, TOTAL [MOLES/VOLU ME] IN SERUM OR PLASMA 29 mmol/L 22 - 29 07/25 Specimen Type: PLASMA No comment entered. Ordering Provider: JAQUAN MCFADDEN Report Released Date/Time: Jul 23, 2024 07:54 PM Reporting Lab: [facility] [address] Performing Lab: [facility] [address] [place] [facility] BASIC METABOLIC PANEL+MG CALCIUM [MASS/VOLUM E] IN SERUM OR PLASMA 9.1 mg/dL 8.4 - 10.2 07/25 Specimen Type: PLASMA No comment entered. Ordering Provider: JAQUAN MCFADDEN Report Released Date/Time: Jul 23, 2024 07:54 PM Reporting Lab: [facility] [address] Performing Lab: [facility] [address] [place] [facility] BASIC METABOLIC PANEL+MG MAGNESIUM [MASS/VOLUM E] IN SERUM OR PLASMA 2.2 mg/dL 1.6 - 2.6 07/25 Specimen Type: PLASMA No comment entered. Ordering Provider: JAQUAN MCFADDEN Report Released Date/Time: Jul 23, 2024 07:54 PM Reporting Lab: [facility] [address] Performing Lab: [facility] [address] [place] [facility] BASIC METABOLIC PANEL+MG ANION GAP IN SERUM OR PLASMA 4 mmol/L 5 - 15 07/25 L Specimen Type: PLASMA No comment entered. Ordering Provider: JAQUAN MCFADDEN Report Released Date/Time: Jul 23, 2024 07:54 PM Reporting Lab: [facility] [address] Performing Lab: [facility] [address] [place] [facility] BASIC METABOLIC PANEL+MG GLOMERULAR FILTRATION RATE/1.73 SQ M.PREDICTED [VOLUME RATE/AREA] IN SERUM, PLASMA OR BLOOD BY CREATININE- BASED FORMULA (CKD-EPI 2020) 78 60 07/25 Specimen Type: PLASMA No comment entered. Ordering Provider: JAQUAN MCFADDEN Report Released Date/Time: Jul 23, 2024 07:54 PM Reporting Lab: [facility] [address] Performing Lab: [facility] [address] [facility] Vital Signs Combined list of inpatient and outpatient Vital Signs from Department of [facility] and [facility], ranging from 12 months to all on record, depending upon the facility. Vital Sign Value Date Comments Source SYSTOLIC BLOOD PRESSURE 153 07/25/2024 12:26:02 [facility] DIASTOLIC BLOOD PRESSURE 70 07/25/2024 12:26:02 [facility] PULSE OXIMETRY 97 07/25/2024 12:26:02 [facility] WEIGHT 200.7 07/25/2024 12:26:02 [facility] BMI 28kg/m2 07/25/2024 12:26:02 [facility] PAIN 5 07/25/2024 12:26:02 [facility] TEMPERATURE 98.3 07/25/2024 12:26:02 [facility] PULSE 53 07/25/2024 12:26:02 [facility] RESPIRATION 16 07/25/2024 12:26:02 [facility] Encounters Combined list of: 1) Encounters from Department of Veterans Affairs facilities going back up to thelast 18 months. 2) Encounters from the Department of [facility] facilities going back up to 280 months. Location Location Details Encounter Type Encounter Number Reason For Visit Attending Provider ADM Date DC Date Status Disposition Source [facility] OFFICE O/P EST LOW 20-29 MIN [id number] Diagnos is: ICD-10- CM M47.22 Other spondyl osis with radicul opathy, cervica l region< br/> KARL BENSON 07/14 [facility] Outpatient Encounter [id number] 07/25 [facility] OFFICE O/P [place] HI 40 MIN [id number] Diagnos is: ICD-10- CM L03.039 Celluli tis of unspeci fied toe<br/ > Yojana GRIFFIN 07/25 [facility] Social History Combined list of available smoking, tobacco, and other social history from Department of Defense and Veterans Affairs facilities. Social History Type Response Date Comment Sour e Tobacco smoking status [facility]-TO[facility] QUIT 15 YRS OR MORE 07/25/2024 [facility] [place] 07/25/2024 [facility] of [facility] OR MORE 07/14/2023 [facility] [place] 08/25/2021 [facility] [place] of [place] 07/03/2020 [facility] [place] of [place] 04/17/2019 [facility] History of tobacco use FORMER TOBACCO US ER 7Y OR GREATER 10/14/2016 [facility] History of tobacco use FORMER TOBACCO US ER 7Y OR GREATER 09/04/2015 [facility] History of tobacco use FORMER TOBACCO US ER 7Y OR GREATER 02/18/2014 [facility] History of tobacco use FORMER TOBACCO US ER 7Y OR GREATER 10/05/2010 [facility]
--- OUTSIDE RECORDS SUMMARY | 2024-09-19 11:22 | XMS_ITS | Patient Health Record ---
Author Organization [facility] - Primary Address [address] [place] [address] Care Team Providers Care Clinical Social Work Therapist Name Role Phone Different, PCP Primary Care Provider Villa Lovell Unavailable [phone] ALLERGIES No Known Allergies REASON FOR REFERRAL No Information MEDICATIONS Medication SIG (Take, Route, Frequency, Duration) Notes Start Date End Date Status Symbicort 160 mcg-4.5 mcg/inh 2 puff(s) inhaled 2 times a day for 30 day(s) Not-Taking albuterol 90 mcg/inh 2 puff(s) inhaled e [...] 1/2 tab orally once a day Active SOCIAL HISTORY Sex Assigned At : Social History Observation Description Sex Assigned At Unknown PROBLEMS Problem Type ICD Code Onset Dates Problem Status W/U Status Risk SNOMED Code Notes Problem Chronic pain syndrome (G89.4) Active confirmed Chronic khai n syndrome (903734139) Problem Cervicalgia (M54.2) Active confirmed Cervicalgia (78358161) Encounters Encounter Location Date Provider Diagnosis [facility] Primary [address] [place] [id number] 10/24/2023 Villa Perez Chronic pain syndrome G89.4 [facility] - Primary [address] [place] [phone] 08/20/2024 Villa Perez Chronic pain syndrome G89.4 ASSESSMENTS Encounter Date Diagnosis Assessment Notes Treatment Notes Treatment Clinical Notes 10/24/2023 Chronic pain syndrome (ICD-10 - G89.4) Recertified for medical cannabis on [facility] cannabis website according to [place] law Discussed orthopedic pillows and acupuncture, referred to Erlinda Eldridge 08/20/2024 Chronic pain syndrome (ICD-10 - G89.4) Recertified for medical cannabis on [facility] cannabis website according to [place] law PLAN OF TREATMENT No Information Insurance Providers Payer Name Payer Address Payer Phone Subscriber Number Group Number Insured Name Patient Relationship to Insured Coverage Start Date Coverage End Date [employer] [address] [address] [place] [address] [id number] Gerardo Mccray Self - patient is the insured MEDICAL (GENERAL) HISTORY Medical History History ICD Code Gout neck pain Surgical History Surgery Date(Month/Year) cholecystectomy left hip replacement right hip replacement ankle Rt Hospitalization History Reason Date(Month/Year) [facility] ER sciatica severe pain 4 COVID-19 [facility]
--- OUTSIDE RECORDS SUMMARY | 2024-09-19 11:22 | XMS_ITS | Encounter Summary ---
Author Name [facility] [place] [facility] [place] Address [address] [place] [address] Care Team Providers Care Heel Seat Flap Stapler Name Role Phone JAQUAN MCFADDEN Primary [facility] Insurance Providers: All historical and current Section Date Range: From patient's date of to the date document was created. This section includes the names of all active insurance providers for the patient. Insurance Provider Type of Coverage Plan Name Start of Policy Coverage End of Policy Coverage Group Number Member ID Insurance Provider's Telephone Number Policy Winters's Name Patient's Relationship to Policy Winetrs [place] SUPPLEMEN [place] MEDIC ARE SUPPL EMENT May 02, 2019 [id number] MK STORY PATIENT [place] [facility] (WNR) MEDICARE ADVANTAGE SENIO R GOLD INDIV IDU Oct 02, 2016 [id number] [phone] KM STORY PATIENT [place] SUPPLEMEN [place] MEDIC ARE SUPPL EMENT May 02, 2019 [id number] MK STORY PATIENT MEDICARE (WNR) MEDICARE (M) PART A Apr 01, 2014 PART A [id number] [phone] MK STORY PATIENT MEDICARE (WNR) MEDICARE (M) PART B Apr 01, 2014 PART B [id number] [phone] MK STORY PATIENT Selected Encounter This section includes the information on record at VA for the Encounter. Date/Time Encounter Type Encounter Description Reason Pro vider Source IHE Encounter Template Text not used by VA
--- OUTSIDE RECORDS SUMMARY | 2024-09-19 11:22 | XMS_ITS | Encounter Summary ---
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 This section includes the names of all active insurance providers for the patient. Insurance Provider Type of Coverage Plan Name Start of Policy Coverage End of Policy Coverage Group Number Member ID Insurance Provider's Telephone Number Policy Winters's Name Patient's Relationship to Policy Winters [place] MEDICARE SUPPLEMEN [place] MEDIC ARE SUPPL EMENT May 02, 2019 [id number] MK STORY [place] [facility] (WNR) MEDICARE ADVANTAGE SENIO R GOLD INDIV IDU Oct 02, 2016 [id number] [phone] MK STORY PATIENT [place] MED[place] SUPPLEMEN [place] MEDIC ARE SUPPL EMENT May 02, 2019 [id number] MK STORY PATIENT MEDICARE (WNR) MEDICARE (M) PART A Apr 01, 2014 PART A [id number] MK STORY PATIENT MEDICARE (WNR) MEDICARE (M) PART B Apr 01, 2014 PART B [id number] MK STORY PATIENT Selected Encounter This section includes the information on record at [facility] for the Encounter. Date/Time Encounter Type Encounter Description Reason Provider Source Jul 25, 2024 01:00 PM OFFICE O/P EST HI 40 MIN PRIMARY CARE/MEDICINE ICD-10-CM L03.039 Cellulitis of unspecified toe GABY,DAVID ABE Nuria Yojana Encounter Template Text not used by [facility] Assessments - Encounter Diagnoses This section includes the primary and secondary diagnoses documented for the Encounter. Date/Time Primary/Secondary Diagnosis Diagnosis Name Provider Source Jul 25, 2024 01:23 PM PRIMARY Cellulitis of unspecified toe GABY,MOOKIE [facility] Jul 25, 2024 01:23 PM SECONDARY Essential (primary) [facility] Jul 25, 2024 01:23 PM SECONDARY Other spondylosis with radiculopathy, cervical region [facility] Jul 25, 2024 01:23 PM SECONDARY Unspecified asthma, uncomplicated [facility] Plan of Treatment: Future Appointments (+ 6 months) and Future Tests (+/- 45 days) The Plan of Treatment section includes future care activities for the patient from [facility]. This section includes future appointments and future orders which are active, pending or scheduled. Active, Pending, and Scheduled Orders This section includes a listing of several types of active, pending, and scheduled orders, including clinic medications orders, diagnostic test orders, procedure orders and consult orders; where the start date of the order is 45 days before the date of the Encounter or 45 days after the date of theEncounter. The data comes from all [place] treatment facilities. Test Date/Time Test Type Test Details Facility Name Jul 14, 2024 12:00 AM Laboratory - Chemistry Order COMPREHENSIVE METABOLIC PANEL+MG PLASMA SP ONCE [facility] Jul 14, 2024 12:00 AM Laboratory - Chemistry Order HEMOGLOBIN A1C BLOOD [facility] Jul 14, 2024 12:00 AM Laboratory - Chemistry Order LIPID PANEL,NON-FASTING PLASMA [facility] Lab Results: +/- 30 days of the encounter This section includes the Chemistry and Hematology Lab Results on record with AR for the patient. Radiology Reports and Pathology Reports are provided separately, in subsequent sections. Lab Results This section contains the Chemistry/Hematology Results that were resulted 30 days before or 30 daysafter the date of the Encounter. Date/Time Source Result Type Result - Unit Interpretation Reference Range Comment Jul 25, 2024 12:00 PM [facility] LIPID PANEL,NON-FASTING Specimen Type: PLASMA No comment entered. Ordering Provider: JAQUAN MCFADDEN Report Released Date/Time: Jul 23, 2024 07:54 PM Reporting Lab: [facility] [id number] Performing Lab: [facility] [id number] CHOLESTEROL 160 mg/dL <199 .HDL 44 mg/dL >40 LDL CALCULATION 85 mg/dL <99 VLDL CALCULATION 31 mg/dL H <29 NON HDL CHOLESTEROL 116 mg/dL <129 TRIG(NON FASTING) 155 mg/dL H <149 Jul 25, 2024 12:00 PM [facility] CBC Specimen Type: BLOOD No comment entered. Ordering Provider: JAQUAN MCFADDEN Report Released Date/Time: Jul 23, 2024 07:54 PM Reporting Lab: [facility] [id number] Performing Lab: [facility] [id number] WBC 6.2 4.0-11.0 RBC 4.44 L 4.60-6.20 HGB 14.1 g/dL 13.5-17.9 HCT 42.1 41.0-54.0 MCV 94.8 fL 80.0-100.0 MCH 31.8 pg 27.0-33.0 MCHC 33.5 g/dL 32.0-37.5 PLT 199 150-400 MPV 10.0 fL 9.1-13.0 RDW 13.0 11.5-14.5 Jul 25, 2024 12:00 PM [facility] BASIC METABOLIC PANEL+MG Specimen Type: PLASMA No comment entered. Ordering Provider: JAQUAN MCFADDEN Report Released Date/Time: Jul 23, 2024 07:54 PM Reporting Lab: [facility] [phone] Performing Lab: [facility] [phone] CREATININE 1.0 mg/dL 0.7-1.2 UREA NITROGEN 16 mg/dL 8-26 GLUCOSE 82 mg/dL 70-100 SODIUM 140 mmol/L 136-145 POTASSIUM 4.6 mmol/L 3.5-5.1 CHLORIDE 107 mmol/L 98-107 CO2 29 mmol/L 22-29 CALCIUM 9.1 mg/dL 8.4-10.2 MAGNESIUM 2.2 mg/dL 1.6-2.6 ANION GAP 4 mmol/L L 5-15 .CREAT EGFR(CKD-EPI) 78 >60 Vital Signs: All taken on the encounter date This section contains inpatient and outpatient Vital Signs collected on the date of the Encounter. Date/Time Temperature Pulse Blood Pressure Respiratory Rate SP02 Pain Height Weight Body Mass Index Source Jul 25, 2024 12:36 PM 149/79 [facility] Jul 25, 2024 12:26 PM 98.3 53 153/70 16 97 5 200.7 28 [facility] Social History: Smoking Status (Most current) and Tobacco Use (All prior to encounter date) This section includes the most current, and the historical, smoking and tobacco- related health factors from the [place] facility where the Encounter took place. Current Smoking Status This section includes the most current smoking, or tobacco-related health factor, from the AR facility where the Encounter took place. Date/Time Current Smoking Status Comment Facil ity Jul 25, 2024 01:00 PM VA-TOBACCO FORMER USER [facility] Tobacco Use History This section includes a history of the smoking, or tobacco-related health factors, that were collected on or before the date of the Encounter. The data comes from the AR facility where the Encounter took place. Date/Time Smoking Status/Tobacco Use Comment F acility Jul 25, 2024 01:00 PM VA-TOBACCO QUIT 15 YRS OR MORE [facility] Jul 14, 2023 10:00 AM VA-TOBACCO FORMER USER [facility] Jul 14, 2023 10:00 AM VA-TOBACCO QUIT 15 YRS OR MORE [facility] Aug 25, 2021 02:00 PM VA-TOBACCO FORMER USER [facility] Aug 25, 2021 02:00 PM VA-TOBACCO QUIT 15 YRS OR MORE [facility] Jul 03, 2020 09:30 AM VA-TOBACCO FORMER USER [facility] Jul 03, 2020 09:30 AM VA-TOBACCO QUIT 15 YRS OR MORE [facility] Apr 17, 2019 03:12 PM VA-TOBACCO FORMER USER [facility] Apr 17, 2019 03:12 PM VA-TOBACCO QUIT 15 YRS OR MORE [facility] Oct 14, 2016 08:47 AM FORMER TOBACCO USER 7Y OR GREATE R [facility] Sep 04, 2015 10:47 AM FORMER TOBACCO USER 7Y OR JORDON Marshall [facility] February 18, 2014 03:10 PM FORMER TOBACCO USER 7Y OR JORDON Marshall [facility] Oct 05, 2010 10:16 AM FORMER TOBACCO USER 7Y OR GIANNA Joanna [facility] Encounter Notes: All associated encounter notes This section contains the clinical notes associated to the Encounter. Date/Time Encounter Note(s) Provider Source Jul 25, 2024 01:02 PM INTERNAL MEDICINE NOTE: LOCAL TITLE: MEDICINE CLINIC NOTE STANDARD TITLE: INTERNAL MEDICINE NOTE DATE OF NOTE: JUL 25, 2024@13:02 ENTRY DATE: JUL 25, 2024@13:02:22 AUTHOR: TEA GRIFFIN COSIGNER: URGENCY: STATUS: COMPLETED 74-year-old man with a history of asthma, gout, cervicalgia presenting for annual comanaged visit. Primary care is via [facility]. Unclear which inhalers he is currently using, reports he is only using as needed and has many extra. Per outside records he has been prescribed Symbicort, has had multiple other inhalers previously through the [place]. He recently had a pedicure, reports this was last . Notes that there was some inadvertent cutting of the skin during the pedicure, he subsequently noticed a red area that has become more irritated over the past few days. He has been using topical antibiotic for this. Active problems - Computerized Problem List is the source for the followin. Chronic low back pain (SNOMED CT 093053488) 2. Irritable bowel syndrome (SNOMED CT 66538437) 3. Gout (SNOMED CT 78425944) 4. Hypertension (SNOMED CT 38756589) 5. Osteoarthritis - S/P right total hip in 2016 - S/P left total hip in 2019 6. Asthma 7. Shoulder pain 8. History of venous thromboembolic disease - H/O PE in setting of COVID (06/2021) 9. History of inactive tuberculosis - S/P INH/thambutol/rifampin/pyr zinamide for latent TB in 2018 10. Cervical spondylosis 11. Glaucoma 12. Exposure to potentially hazardous substance (SCT [id number]) - [facility] Temperature: 98.3 F [36.8 C] (07/25/2024 12:26) Blood Pressure: 149/79 (07/25/2024 12:36) Pulse: 53 (07/25/2024 12:26) Respiration: 16 (07/25/2024 12:26) Pain: 5 (07/25/2024 12:26) Pulse Oximetry: 97% (07/25/2024 12:26) Gen: alert, pleasant, NAD HEENT: no icterus, mmm CV: rrr, no m/r/g Resp: lungs ctab, no wheezes/crackles Ext: no LE edema Skin: R hallux with erythema and induration on medial aspect abutting nail, no fluctuance A/P R toe cellulitis, mild - mupirocin x7 days, cefadroxil 100 mg x5 days - rx called in to [facility] in [place] per pt pref Cervicalgia - hydrocodone, tizanidine per pcp HTN - declines meds Asthma vs COPD - symbicort, using prn Gout - allopurinol Labs reviewed with patient RTC 12 mo or prn for annual comanaged visit Medication Reconciliation: Education Evaluations *Was medication education provided for NEW medications or CHANGES to medications? (including medication name, dose, route, reason for use, and potential side effects). Yes. Verbal education was provided to patient/caregiver and patient/caregiver verbalized understanding. TERATOGENIC MED & CONTRACEPTION REVIEW (Optional)... ======= MEDICATION RECONCILIATION ======= Review Done: The medication list shown below was verified for accuracy and it includes all pending medications/active medications/all medications or discontinued within the last 90 days/all remote medications and non-VA medications. If a given category (i.e. remote meds) is not shown, that means that a patient doesn't have a medication(s) in that category. Allergies listed below were also reviewed/updated for accuracy. Allergies/ADR from [facility] may not display in CPRS. Use JLV MRT5 - Allergies/ADRs FACILITY ALLERGY/ADR -------- No Remote Allergy/ADR Data available for this patient [facility] DOXYCYCLINE Active and Recently Outpatient Medications (including Supplies): Issue Date Status Last Fill Inactive Outpatient Medications Refills Expiration 1) ALBUTEROL 90MCG (CFC-F) 200D ORAL INHL DISCONTINUED Issu:07-14-23 Qty: 2 for 50 days Sig: INHALE 1-2 Refills: 11 Last:07-14-23 PUFFS BY INHALATION EVERY 4 HOURS Expr:07-14-24 NEEDED FOR SHORTNESS OF BREATH SHAKE WELL (FOR IMMEDIATE RELIEF) 2) FLUTICAS 100/SALMETEROL 50 INHL DISK 60 DISCONTINUED Issu:07-14-23 Qty: 3 for 90 days Sig: INHALE 1 PUFF Refills: 3 Last:07-14-23 BY INHALATION TWICE A DAY *RINSE MOUTH Expr:07-14-24 AFTER EACH USE* 3) TIOTROPIUM 1.25MCG/ACTUAT 60D ORAL INHL DISCONTINUED Issu:07-14-23 Qty: 3 for 90 days Sig: INHALE TWO Refills: 3 Last:07-14-23 PUFFS BY INHALATION EVERY DAY TO Expr:07-14-24 PREVENT TROUBLE BREATHING Start Date Active Non-VA Medications Refills Expiration 1) Non-VA ALLOPURINOL TAB SiMG MOUTH ACTIVE EVERY DAY 2) Non-VA BUDESONIDE/FORMOTEROL INHL,ORAL ACTIVE Sig: INHALATION 3) Non-VA CEFADROXIL 500MG CAP SiMG ACTIVE MOUTH TWICE A DAY 4) Non-VA HYDROCODONE 5/ACETAMINOPHEN 325MG ACTIVE TAB Sig: MOUTH 5) Non-VA LATANOPROST 0.005% OPH SOLN Sig: ACTIVE 1 DROP BOTH EYES AT BEDTIME 6) Non-VA MUPIROCIN 2% OINT Sig: THIN ACTIVE LAYER TOPICALLY THREE TIMES A DAY 7) Non-VA SILDENAFIL CITRATE 100MG TAB ACTIVE SiMG MOUTH PRN_EREC 8) Non-VA SILDENAFIL TAB Sig: MOUTH ACTIVE 9) Non-VA TAMSULOSIN HCL 0.4MG CAP Sig: ACTIVE 0.4MG MOUTH EVERY DAY 10) Non-VA TIMOLOL MALEATE 0.5% OPH SOLN ACTIVE 0.3ML Si DROP BOTH EYES EVERY DAY 11) Non-VA TIZANIDINE HCL 4MG TAB SiMG ACTIVE MOUTH EVERY 6 HOURS NEEDED 14 Total Medications // TEA GRIFFIN MD PHYSICIAN Signed: 07/25/2024 13:23 TEA GRIFFIN [facility] Jul 25, 2024 12:27 PM INTERNAL MEDICINE OUTPATIENT NOTE: LOCAL TITLE: MEDICINE CLINIC NURSING NOTE STANDARD TITLE: INTERNAL MEDICINE OUTPATIENT NOTE DATE OF NOTE: JUL 25, 2024@12:27 ENTRY DATE: JUL 25, 2024@12:27:25 AUTHOR: VIKRAM INIGUEZ EXP COSIGNER: URGENCY: STATUS: COMPLETED TYPE OF VISIT: Appointment Check In Type of appointment: In-person appointment REASON FOR VISIT: Annual and toe infection ALLERGIES: DOXYCYCLINE (Aug 25, 2021) VITAL SIGNS: Blood Pressure: 153/70 (07/25/2024 12:26) recheck bp 149/79. Pulse: 53 (07/25/2024 12:26) Respiration: 16 (07/25/2024 12:26) Temperature: 98.3 F [36.8 C] (07/25/2024 12:26) Weight: 200.7 lb [91.04 kg] (07/25/2024 12:26) Height: 71 in [180.3 cm] (07/14/2023 09:59) BMI: 28.1 O2 Sat: 97% (07/25/2024 12:26) Pain: 5 (07/25/2024 12:) PAIN SCREEN: Patient is having significant pain that they would like to talk to their provider about today. Acute pain is new pain, which as been present for less than 6 months Words used to describe pain: achy Number that best describes pain intensity on average in the past week: 5 Pain located in the following location(s): other: Rt. toe Pain has been happening for: 1-4 weeks Pain is worse when: other: touching it Pain is better when: resting COVID-19 Immunization: Refused Pfizer Monovalent COVID-19 vaccine Immunization: COVID-19 (PFIZER), MRNA, LNP-S, PF, OLLIE-SUCROSE, 30 MCG/0.3 ML (AGES 12+ YEARS) Refusal Reason: PATIENT DECISION Patient refuses all immunization(s) in the COVID-19 group Date Documented: 07/25/24 12:30 Influenza Immunization: Deferral / Refusal The patient declines to receive the recommended dose of seasonal influenza vaccine. Immunization: INFLUENZA, UNSPECIFIED FORMULATION Refusal Reason: PATIENT DECISION Patient refuses all immunization(s) in the FLU group Date Documented: 07/25/24 12:30 Suicide Screen: C-SSRS Screening [place] Suicide Severity Rating Scale (C-SSRS) screener 1. Over the past month, have you wished you were or wished you could go to sleep and not wake up? No 2. Over the past month, have you had any actual thoughts of killing yourself? No 3. Over the past month, have you been thinking about how you might do this? Response not required due to responses to other questions. 4. Over the past month, have you had these thoughts and had some intention of acting on them? Response not required due to responses to other questions. 5. Over the past month, have you started to work out or worked out the details of how to kill yourself? Response not required due to responses to other questions. 6. If yes, at any time in the past month did you intend to carry out this plan? Response not required due to responses to other questions. 7. In your lifetime, have you ever done anything, started to do anything, or prepared to do anything to end your life (for example, collected pills, obtained a gun, gave away valuables, went to the roof but didn't jump)? No 8. If YES, was this within the past 3 months? Response not required due to responses to other questions. Depression Screening: Perform PHQ-2 A PHQ-2 screen was performed. The score was 0 which is a negative screen for depression. Over the past two weeks, how often have you been bothered by the following problems? 1. Little interest or pleasure in doing things Not at all 2. Feeling down, depressed, or hopeless Not at all Alcohol Use Screen (AUDIT-C): Alcohol Screen: SCREEN FOR ALCOHOL (AUDIT-C) An alcohol screening test (AUDIT-C) was negative (score=0). 1. How often did you have a drink containing alcohol in the past year? Consider a drink to be a 12 ounce can or bottle of regular beer, 8 ounces of malt liquor, a 5 ounce glass of table wine, or a 1.5 ounce shot of liquor (like scotch, gin, or vodka). Never 2. How many drinks containing alcohol did you have on a typical day when you were drinking in the past year? Response not required due to responses to other questions. 3. How often did you have six or more drinks on one occasion in the past year? Response not required due to responses to other questions. Nursing Annual Screening: Whole Health Screen is due OR due soon (within 90 days). Whole Health Screening Why is addressing your overall health important to you? to feel better. What do you want your health for (why do you want to be healthy)? to feel good. Fall History Screen During the past 12 months, have you had any falls? Patient reports one fall with injury requiring treatment in the past 12 months. MEDICATIONS: Patient is on one of the following medication classes: Antihypertensives, Antidepressants, Antipsychotics, Diuretics, or Controlled substance medication used for pain. Script Talk Screen Are you able to read your prescription bottles with your glasses, magnifiers or other aids? Yes or patient not taking any prescriptions. Skin Screen Patient reports any current pressure ulcers, a history of pressure ulcers, or a wound from a medical officer psychiatry or Patient is bed-confined or a wheelchair-user or Patient requires assistance to transfer/change position No, Skin Screen is Negative Home Abuse/Violence Screen Is your home free of abuse and violence? Yes MOVE! Program Screen Body Mass Index (BMI)= 28.1 [place]: Collection DT Specimen Test Name Result Units Ref Range 10/14/2016 07:42 BLOOD !! HEMOGLOBIN A1C 5.4 % 4.0 - 6.0 !! Indicates COMMENTS AVAILABLE...Refer to Interim Lab Report. [place] Hgb A1C: No data available [place] Hgb A1C: No data available Point of Care Hgb A1C: POC HGB A1C____ Outpatient Nutrition Screen Body Mass Index (BMI)= 28.1 [place]: Collection DT Specimen Test Name Result Units Ref Range 10/14/2016 07:42 BLOOD !! HEMOGLOBIN A1C 5.4 % 4.0 - 6.0 !! Indicates COMMENTS AVAILABLE...Refer to Interim Lab Report. [place] Hgb A1C: No data available [place] Hgb A1C: No data available Point of Care Hgb A1C: POC HGB A1C____ Is patient's BMI less than 18.5? No Does patient have swallowing, coughing, or chewing problems affecting oral intake? No Has patient experienced unplanned weight loss or gain greater than 10 pounds over the last 2 months? No Is patient's Hgb A1C (Glycosylated Hemoglobin) greater than 9.5? Information not available Is patient receiving Total Parenteral Nutrition (TPN) or Tube Feedings? No Patient Health Education Screen BARRIERS/SPECIAL NEEDS: Visual limitations PREFERRED STYLE OF LEARNING: No preference stated Client Assistive Service (GEMA) Screen Does the patient require assistance with outpatient visit? No Tobacco Use Screening: The patient is a former tobacco user. The patient quit fifteen or more years ago. Herpes Zoster (Shingles) Vaccine: The patient declines to receive the recommended dose of zoster (shingles) vaccine. Immunization: ZOSTER RECOMBINANT Refusal Reason: PATIENT DECISION Patient refuses all immunization(s) in the ZOSTER group Date Documented: 07/25/24 12:33 Td / Tdap Immunization: The patient declines to receive the recommended dose of Td/Tdap vaccine. Immunization: TD(ADULT) UNSPECIFIED FORMULATION Refusal Reason: PATIENT DECISION Patient refuses all immunization(s) in the Td group Date Documented: 07/25/24 12:34 Homelessness/Food Insecurity Screen: In the past 2 months, have you been living in stable housing that you own, rent, or stay in as part of a household? Yes - Living in stable housing. Are you worried or concerned that in the next 2 months you may NOT have stable housing that you own, rent, or stay in as part of a household? No - Not worried about housing near future [facility] reports the following: Within the past 12 months, you worried whether your food would run out before you got money to buy more. Never true Within the past 12 months, the food you bought just didn't last and you didn't have money to get more. Never true Food Assistance Programs [facility] Food Assistance [facility] /shani/ VIKRAM INIGUEZ LPN, LPN Signed: 07/25/2024 12:35 VIKRAM INIGUEZ [facility]
--- OUTSIDE RECORDS SUMMARY | 2024-09-30 11:26 | XMS_ITS ---
Author Organization [facility] - Primary Address [address] [place] [id number] Care Team Providers Care Corporate Secretary Name Role Phone Different, PCP Primary Care Provider Villa Lovell Unavailable [phone] ALLERGIES No Known Allergies REASON FOR VISIT [...] Diagnosis [facility] - Primary [address] [place] [address] 08/20/2024 Villa Perez Chronic pain syndrome G89.4 ASSESSMENTS Encounter Date Diagnosis Assessment Notes Treatment Notes Treatment Clinical Notes 08/20/2024 Chronic pain syndrome (ICD-10 - G89.4) Recertified for medical cannabis on [facility] cannabis website according to [place] law PLAN OF TREATMENT Treatment Notes Assessment Notes Chronic pain syndrome Recertified for me dical cannabis on [facility] cannabis website according to [place] law Next Appt Details Follow Up: prn, Reason:
--- OUTSIDE RECORDS SUMMARY | 2024-09-30 11:26 | XMS_ITS ---
Author Organization [facility] - Primary Address [address] [place] [id number] Care Team Providers Care Delivery Technician Name Role Phone Different, PCP Primary Care Provider Villa Lovell Unavailable [phone] ALLERGIES No Known Allergies REASON FOR VISIT [...] Diagnosis [facility] Primary [address] [place] [address] 10/24/2023 Villa Perez Chronic pain syndrome G89.4 ASSESSMENTS Encounter Date Diagnosis Assessment Notes Treatment Notes Treatment Clinical Notes 10/24/2023 Chronic pain syndrome (ICD-10 - G89.4) Recertified for medical cannabis on [facility] cannabis website according to [place] law Discussed orthopedic pillows and acupuncture, referred to Erlinda Eldridge PLAN OF TREATMENT Treatment Notes Assessment Notes Chronic pain syndrome Recertified for medical cannabis on [facility] cannabis website according to [place] herrera Discussed orthopedic pillows and acupuncture, referred to Erlinda Eldridge Next Appt Details Follow Up: 1 Year, Reason:
--- OUTSIDE RECORDS SUMMARY | 2024-09-30 11:26 | XMS_ITS | Continuity of Care Document ---
Author Name [facility] Organization [facility] Care Team Providers Care Controls Designer Name Role Phone [facility] Unavailable Unavailable Problems Combined list of problems from Department of Defense and Veterans Affairs facilities. It does not include entries that were removed or entered in error. Problem Status Onset Date Problem Type Date of Resolution Comments Source Exposure to potentially hazardous substance ([facility] [id number]) Active 12/08/19 24 Condition Dec 08, 2023 Entered By: GET MCPHERSON [facility]: [facility] Documentation Initiative [facility] History of venous thromboembolic disease Active 10/02/19 21 Condition Sep 10, 2021 Entered By: IFTIKHAR JACK Comment: H/O PE in setting of COVID (06/2021) [facility] History of inactive tuberculosis Active 10/02/19 19 Condition Dec 16, 2021 Entered By: IFTIKHAR JACK Comment: S/P INH/thambutol/r ifampin/pyrzina mide for latent TB in 2018 [facility] Asthma Active Condition [facility] Cervical spondylosis Active Condition [facility] Chronic low back pain (SNOMED CT 681989084) Active Condition [facility] Glaucoma Active Condition [facility] Gout (SNOMED CT 55415813) Active Condition [facility] Hypertension (SNOMED CT 89660006) Active Condition [facility] Irritable bowel syndrome (SNOMED CT 69090141) Active Condition [facility] Osteoarthritis Active Condition Sep 012020 Entered By: IFTIKHAR JACK Comment: 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 Entered By: IFTIKHAR JACK Comment: S/P left total hip in 2019 [facility] Shoulder pain [facility] Diagnosis: ICD-10-CM L03.039 Cellulitis of unspecified toe Active Diagnosis [facility] Diagnosis: ICD-10-CM M47.22 Other spondylosis with radiculopathy, cervical region Active Diagnosis [facility] Medications Combined list of outpatient medications from [...] RESPIR ATORY (INHAL ATION) DISCONT INUED 07/14/2024 [id number] LUIS BENSON 2022 2 [facility] ALLOPURINOL TAB TAKE 150MG BY MOUTH EVERY DAY ORAL ACTIVE TEA GRIFFIN 2023 [facility] BUDESONIDE/ FORMOTEROL INHL,ORAL INHALE BY INHALATI ON RESPIR ATORY (INHAL ATION) ACTIVE TEA GRIFFIN 2023 [facility] CEFADROXIL 500MG CAP TAKE 2 CAPSULES BY MOUTH TWICE A DAY ORAL ACTIVE TEA GRIFFIN 2023 [facility] FLUTICASONE 100MCG/SALM ETEROL 50MCG INHL,ORAL,D ISKUS,60 INHALE 1 PUFF BY INHALATI ON TWICE A DAY *RINSE MOUTH AFTER EACH USE* RESPIR ATORY (INHAL ATION) DISCONT INUED 07/14/2024 [id number] LUIS BENSON 2022 3 [facility] HYDROCODONE 5/ACETAMINO PHEN 325MG TAB TAKE BY MOUTH ORAL ACTIVE TEA GRIFFIN 2023 [facility] LATANOPROST 0.005% SOLN,OPH INSTILL 1 DROP IN BOTH EYES AT BEDTIME OPHTHA LMIC ACTIVE DENZEL JACK 2021 [facility] MUPIROCIN 2% OINT,TOP APPLY THIN LAYER TOPICALL Y THREE TIMES A DAY TOPICA L ACTIVE TEA GRIFFIN 2023 [facility] SILDENAFIL CITRATE 100MG TAB TAKE ONE TABLET BY MOUTH PRN_EREC ORAL ACTIVE DIAMOND MOSS H 2020 [facility] SILDENAFIL TAB TAKE BY MOUTH ONCE NEEDED ORAL ACTIVE TEA GRIFFIN 2023 [facility] TAMSULOSIN HCL 0.4MG CAP TAKE 1 CAPSULE BY MOUTH EVERY DAY ORAL ACTIVE GABY TEA M 2023 [facility] TIMOLOL MALEATE 0.5% SOLN,OPH,0. 3ML INSTILL 1 DROP IN BOTH EYES EVERY DAY OPHTHA LMIC ACTIVE DENZEL JACK R 2021 [facility] TIOTROPIUM 1.25MCG/ACT UAT INHL,ORAL,6 0D,4GM INHALE TWO PUFFS BY INHALATI ON EVERY DAY TO PREVENT TROUBLE BREATHIN G RESPIR ATORY [facility]) [facility]2024 [id number] 3 LUIS BENSON 2022 3 [facility] TIZANIDINE HCL 4MG TAB TAKE ONE TABLET BY MOUTH EVERY 6 HOURS NEEDED ORAL ACTIVE GABY TEA 2023 [facility] Allergies, Adverse Reactions, Alerts Combined list of allergies from Department of Defense and Veterans Affairs facilities. It does not include entries that were removed or entered in error. Substance Category Reaction Severity Reaction type Status Date Reported Comments Source DOXYCYCLINE Propensity to adverse reactions to drug (finding) Anaphylaxis active 1 [facility] Immunizations Combined list of available immunizations from the Department of Defense and Veterans Affairs facilities. Immunization Series Date Given Administered By Site Reaction Lot Number CVX Code Drug Outpatient Pharmacy Manager Status Comments Source INFLUENZA, INJECTABLE, QUADRIVALENT, PRESERVATIVE FREE 2019 150 complet ed [facility] PNEUMOCOCCAL POLYSACCHARID E PPV23 2019 33 complet ed MerckShar p [id number] [facility] PNEUMOCOCCAL CONJUGATE PCV 13 2019 133 complet ed [facility] INFLUENZA, INJECTABLE, QUADRIVALENT, PRESERVATIVE FREE 2019 150 complet ed [facility] PNEUMOCOCCAL CONJUGATE PCV 13 2018 133 complet ed wyeth [id number] Exp. 11/22 [facility] HEP A-HEP B 2017 104 complet ed [facility] HEP A-HEP B 2017 104 complet ed [facility] HEP A-HEP B 2016 104 complet ed [facility] INFLUENZA, HIGH DOSE SEASONAL 2016 135 complet ed [facility] TYPHOID, VICPS 2016 101 complet ed [facility] INFLUENZA, HIGH DOSE SEASONAL 2015 135 complet ed [facility] TDAP 2013 115 complet ed glaxosmit hkline; [id number]; 6 [facility] INFLUENZA, SEASONAL, INJECTABLE 2012 141 complet ed [facility] TDAP 2012 115 complet ed [facility] ZOSTER LIVE 2011 121 complet ed merck [id number],11/05/2012 [facility] TDAP 2008 115 complet ed [facility] INFLUENZA, SEASONAL, INJECTABLE 2007 141 complet ed [facility] TD(ADULT) UNSPECIFIED FORMULATION 2005 139 complet ed [facility] Results Combined list of recent chemistry, hematology [...] Jul 23, 2024 07:54 PM Reporting Lab: [facility] [address] Performing Lab: [facility] [address] [facility] LIPID PANEL,NON -FASTING CHOLESTEROL IN HDL [MASS/VOLUM E] IN SERUM OR PLASMA 44 mg/dL 40 07/25 Specimen Type: PLASMA No comment entered. Ordering Provider: JAQUAN MCFADDEN Report Released Date/Time: Jul 23, 2024 07:54 PM Reporting Lab: [facility] [address] Performing Lab: [facility] [address] [place] [facility] LIPID PANEL,NON -FASTING CHOLESTEROL IN LDL [MASS/VOLUM E] IN SERUM OR PLASMA BY CALCULATION 85 mg/dL <99 - 99 07/25 Specimen Type: PLASMA No comment entered. Ordering Provider: JAQUAN MCFADDEN Report Released Date/Time: Jul 23, 2024 07:54 PM Reporting Lab: [facility] [address] Performing Lab: [facility] [address] [place] [facility] LIPID PANEL,NON -FASTING CHOLESTEROL IN VLDL [MASS/VOLUM E] IN SERUM OR PLASMA BY CALCULATION 31 mg/dL <29 - 29 07/25 H Specimen Type: PLASMA No comment entered. Ordering Provider: JAQUAN MCFADDEN Report Released Date/Time: Jul 23, 2024 07:54 PM Reporting Lab: [facility] [address] Performing Lab: [facility] [address] [place] [facility] LIPID PANEL,NON -FASTING CHOLESTEROL NON HDL [MASS/VOLUM E] IN SERUM OR PLASMA 116 mg/dL <129 - 129 07/25 Specimen Type: PLASMA No comment entered. Ordering Provider: JAQUAN MCFADDEN Report Released Date/Time: Jul 23, 2024 07:54 PM Reporting Lab: [facility] [address] Performing Lab: [facility] [address] [place] [facility] LIPID PANEL,NON -FASTING TRIGLYCERID E [MASS/VOLUM E] IN SERUM OR PLASMA 155 mg/dL <149 - 149 07/25 H Specimen Type: PLASMA No comment entered. Ordering Provider: JAQUAN MCFADDEN Report Released Date/Time: Jul 23, 2024 07:54 PM Reporting Lab: [facility] [address] Performing Lab: [facility] [address] [place] [facility] CBC LEUKOCYTES [#/VOLUME] IN BLOOD BY AUTOMATED COUNT 6.2 4.0 - 11.0 07/25 Specimen Type: BLOOD No comment entered. Ordering Provider: JAQUAN MCFADDEN Report Released Date/Time: Jul 23, 2024 07:54 PM Reporting Lab: [facility] [address] Performing Lab: [facility] [address] [place] [facility] CBC ERYTHROCYTE S [#/VOLUME] IN BLOOD BY AUTOMATED COUNT 4.44 4.60 - 6.20 07/25 L Specimen Type: BLOOD No comment entered. Ordering Provider: JAQUAN MCFADDEN Report Released Date/Time: Jul 23, 2024 07:54 PM Reporting Lab: [facility] [address] Performing Lab: [facility] [address] [place] [facility] CBC HEMOGLOBIN [MASS/VOLUM E] IN BLOOD 14.1 g/dL 13.5 - 17.9 07/25 Specimen Type: BLOOD No comment entered. Ordering Provider: JAQUAN MCFADDEN Report Released Date/Time: Jul 23, 2024 07:54 PM Reporting Lab: [facility] [address] Performing Lab: [facility] [address] [place] [facility] CBC HEMATOCRIT [VOLUME FRACTION] OF BLOOD BY AUTOMATED COUNT 42.1 41.0 - 54.0 07/25 Specimen Type: BLOOD No comment entered. Ordering Provider: JAQUAN MCFADDEN Report Released Date/Time: Jul 23, 2024 07:54 PM Reporting Lab: [facility] [address] Performing Lab: [facility] [address] [place] [facility] CBC MCV [ENTITIC VOLUME] BY AUTOMATED COUNT 94.8 fL 80.0 - 100.0 07/25 Specimen Type: BLOOD No comment entered. Ordering Provider: JAQUAN MCFADDEN Report Released Date/Time: Jul 23, 2024 07:54 PM Reporting Lab: [facility] [address] Performing Lab: [facility] [address] [place] [facility] CBC MCH [ENTITIC MASS] BY AUTOMATED COUNT 31.8 pg 27.0 - 33.0 07/25 Specimen Type: BLOOD No comment entered. Ordering Provider: JAQUAN MCFADDEN Report Released Date/Time: Jul 23, 2024 07:54 PM Reporting Lab: [facility] [address] Performing Lab: [facility] [address] [place] [facility] CBC MCHC [MASS/VOLUM E] BY AUTOMATED COUNT 33.5 g/dL 32.0 - 37.5 07/25 Specimen Type: BLOOD No comment entered. Ordering Provider: JAQUAN MCFADDEN Report Released Date/Time: Jul 23, 2024 07:54 PM Reporting Lab: [facility] [address] Performing Lab: [facility] [address] [facility] CBC PLATELETS [#/VOLUME] IN BLOOD BY AUTOMATED COUNT 199 150 - 400 07/25 Specimen Type: BLOOD No comment entered. Ordering Provider: JAQUAN MCFADDEN Report Released Date/Time: Jul 23, 2024 07:54 PM Reporting Lab: [facility] [address] Performing Lab: [facility] [address] [place] [facility] CBC PLATELET MEAN VOLUME [ENTITIC VOLUME] IN BLOOD BY AUTOMATED COUNT 10.0 fL 9.1 - 13.0 07/25 Specimen Type: BLOOD No comment entered. Ordering Provider: JAQUAN MCFADDEN Report Released Date/Time: Jul 23, 2024 07:54 PM Reporting Lab: [facility] [address] Performing Lab: [facility] [address] [place] [facility] CBC ERYTHROCYTE DISTRIBUTIO N WIDTH [RATIO] BY AUTOMATED COUNT 13.0 11.5 - 14.5 07/25 Specimen Type: BLOOD No comment entered. Ordering Provider: JAQAUN MCFADDEN Report Released Date/Time: Jul 23, 2024 07:54 PM Reporting Lab: [facility] [address] Performing Lab: [facility] [address] [place] [facility] BASIC METABOLIC PANEL+MG CREATININE [MASS/VOLUM E] IN SERUM OR PLASMA 1.0 mg/dL 0.7 - 1.2 07/25 Specimen Type: PLASMA No comment entered. Ordering Provider: JAQUAN MCFADDEN Report Released Date/Time: Jul 23, 2024 07:54 PM Reporting Lab: [facility] [address] Performing Lab: [facility] [address] [place] [facility] BASIC METABOLIC PANEL+MG UREA NITROGEN [MASS/VOLUM E] IN SERUM OR PLASMA 16 mg/dL 8 - 26 07/25 Specimen Type: PLASMA No comment entered. Ordering Provider: JAQUAN CMFADDEN Report Released Date/Time: Jul 23, 2024 07:54 PM Reporting Lab: [facility] [address] Performing Lab: [facility] [address] [place] [facility] BASIC METABOLIC PANEL+MG GLUCOSE [MASS/VOLUM E] IN SERUM OR PLASMA 82 mg/dL 70 - 100 07/25 Specimen Type: PLASMA No comment entered. Ordering Provider: JAQUAN MCFADDEN Report Released Date/Time: Jul 23, 2024 07:54 PM Reporting Lab: [facility] [address] Performing Lab: [facility] [address] [place] [facility] BASIC METABOLIC PANEL+MG SODIUM [MOLES/VOLU ME] IN SERUM OR PLASMA 140 mmol/L 136 - 145 07/25 Specimen Type: PLASMA No comment entered. Ordering Provider: JAQUAN MCFADDEN Report Released Date/Time: Jul 23, 2024 07:54 PM Reporting Lab: [facility] [address] Performing Lab: [facility] [address] [place] [facility] BASIC METABOLIC PANEL+MG POTASSIUM [MOLES/VOLU ME] IN SERUM OR PLASMA 4.6 mmol/L 3.5 - 5.1 07/25 Specimen Type: PLASMA No comment entered. Ordering Provider: JAQUAN MCFADDEN Report Released Date/Time: Jul 23, 2024 07:54 PM Reporting Lab: [facility] [address] Performing Lab: [facility] [address] [place] [facility] BASIC METABOLIC PANEL+MG CHLORIDE [MOLES/VOLU ME] IN SERUM OR PLASMA 107 mmol/L 98 - 107 07/25 Specimen Type: PLASMA No comment entered. Ordering Provider: JAQUAN MCFADDEN Report Released Date/Time: Jul 23, 2024 07:54 PM Reporting Lab: [facility] [address] Performing Lab: [facility] [address] [place] [facility] BASIC METABOLIC PANEL+MG CARBON DIOXIDE, TOTAL [MOLES/VOLU ME] IN SERUM OR PLASMA 29 mmol/L 22 - 29 07/25 Specimen Type: PLASMA No comment entered. Ordering Provider: JAQUAN MCFADDEN Report Released Date/Time: Jul 23, 2024 07:54 PM Reporting Lab: [facility] [address] Performing Lab: [facility] [address] [place] [facility] BASIC METABOLIC PANEL+MG CALCIUM [MASS/VOLUM E] IN SERUM OR PLASMA 9.1 mg/dL 8.4 - 10.2 07/25 Specimen Type: PLASMA No comment entered. Ordering Provider: JAQUAN MCFADDEN Report Released Date/Time: Jul 23, 2024 07:54 PM Reporting Lab: [facility] [address] Performing Lab: [facility] [address] [place] [facility] BASIC METABOLIC PANEL+MG MAGNESIUM [MASS/VOLUM E] IN SERUM OR PLASMA 2.2 mg/dL 1.6 - 2.6 07/25 Specimen Type: PLASMA No comment entered. Ordering Provider: JAQUAN MCFADDEN Report Released Date/Time: Jul 23, 2024 07:54 PM Reporting Lab: [facility] [address] Performing Lab: [facility] [address] [place] [facility] BASIC METABOLIC PANEL+MG ANION GAP IN SERUM OR PLASMA 4 mmol/L 5 - 15 07/25 L Specimen Type: PLASMA No comment entered. Ordering Provider: JAQUAN MCFADDEN Report Released Date/Time: Jul 23, 2024 07:54 PM Reporting Lab: [facility] [address] Performing Lab: [facility] [address] [place] [facility] BASIC METABOLIC PANEL+MG GLOMERULAR FILTRATION RATE/1.73 SQ M.PREDICTED [VOLUME RATE/AREA] IN SERUM, PLASMA OR BLOOD BY CREATININE- BASED FORMULA (CKD-EPI 2020) 78 60 07/25 Specimen Type: PLASMA No comment entered. Ordering Provider: JAQUAN MCFADDEN Report Released Date/Time: Jul 23, 2024 07:54 PM Reporting Lab: [facility] [address] Performing Lab: [facility] [address] [facility] Vital Signs Combined list of inpatient and outpatient Vital Signs from Department of [facility] and [facility], ranging from 12 months to all on record, depending upon the facility. Vital Sign Value Date Comments Source SYSTOLIC BLOOD PRESSURE 153 07/25/2024 12:26:02 [facility] DIASTOLIC BLOOD PRESSURE 70 07/25/2024 12:26:02 [facility] PULSE OXIMETRY 97 07/25/2024 12:26:02 [facility] WEIGHT 200.7 07/25/2024 12:26:02 [facility] BMI 28kg/m2 07/25/2024 12:26:02 [facility] PAIN 5 07/25/2024 12:26:02 [facility] TEMPERATURE 98.3 07/25/2024 12:26:02 [facility] PULSE 53 07/25/2024 12:26:02 [facility] RESPIRATION 16 07/25/2024 12:26:02 [facility] Encounters Combined list of: 1) Encounters from Department of Veterans Affairs facilities going back up to thelast 18 months. 2) Encounters from the Department of [facility] facilities going back up to 280 months. Location Location Details Encounter Type Encounter Number Reason For Visit Attending Provider ADM Date DC Date Status Disposition Source [facility] OFFICE O/P EST LOW 20-29 MIN [id number] Diagnos is: ICD-10- CM M47.22 Other spondyl osis with radicul opathy, cervica l region< br/> KARL BENSON 07/14 [facility] Outpatient Encounter [id number] 07/25 [facility] OFFICE O/P EST HI 40 MIN [id number] Diagnos is: ICD-10- CM L03.039 Celluli tis of unspeci fied toe<br/ > Yojana GRIFFIN 07/25 [facility] Social History Combined list of available smoking, tobacco, and other social history from Department of Defense and Veterans Affairs facilities. Social History Type Response Date Comment Sour e Tobacco smoking status [facility]-TOBACCO QUIT 15 YRS OR MORE 07/25/2024 [facility] History of tobacco use [place] FORMER US[place] 07/25/2024 [facility]/14[facility] [place] of [place] use [place] FOR[place] 08/25/2021 [facility] [place] of [place] use [place] FOR[place] 07/03/2020 [facility] History of tobacco use [place] FOR[place] 04/17/2019 [facility] History of tobacco use FORMER TOBACCO US ER 7Y OR GREATER 10/14/2016 [facility] History of tobacco use FORMER TOBACCO US ER 7Y OR GREATER 09/04/2015 [facility] History of tobacco use FORMER TOBACCO US ER 7Y OR GREATER 02/18/2014 [facility] History of tobacco use FORMER TOBACCO US ER 7Y OR GREATER 10/05/2010 [facility]
--- OUTSIDE RECORDS SUMMARY | 2024-09-30 11:26 | XMS_ITS | Patient Health Record ---
Author Organization [facility] - Primary Address [address] [place] [phone] Care Team Providers Care Sports Marketing Internship Name Role Phone Different, PCP Primary Care Provider Villa Lovell Unavailable [phone] ALLERGIES No Known Allergies REASON FOR REFERRAL [...] (G89.4) Active confirmed Chronic khai n syndrome ([id number]) Problem Cervicalgia (M54.2) Active confirmed Cervicalgia (18369800) Encounters Encounter Location Date Provider Diagnosis [facility] [address] [place] [phone] 10/24/2023 Villa Perez Chronic pain syndrome G89.4 [facility] Primary [address] [place] [phone] 08/20/2024 Villa Perez Chronic pain syndrome G89.4 ASSESSMENTS Encounter Date Diagnosis Assessment Notes Treatment Notes Treatment Clinical Notes 10/24/2023 Chronic pain syndrome (ICD-10 - G89.4) Recertified for medical cannabis on [facility] cannabis website according to [place] law Discussed orthopedic pillows and acupuncture, referred to Erlinda Eldridge 08/20/2024 Chronic pain syndrome (ICD-10 - G89.4) Recertified for medical cannabis on [facility] cannabis website according to [place] law PLAN OF TREATMENT No Information Insurance Providers Payer Name Payer Address Payer Phone Subscriber Number Group Number Insured Name Patient Relationship to Insured Coverage Start Date Coverage End Date [employer] [address] [address] [place] [address] [id number] Gerardo Mccray Self - patient is the insured MEDICAL (GENERAL) HISTORY Medical History History ICD Code Gout neck pain Surgical History Surgery Date(Month/Year) cholecystectomy left hip replacement right hip replacement ankle Rt Hospitalization History Reason Date(Month/Year) [facility] sciatica severe pain 4 COVID-19 [facility]
== END 2025-01-28 23:59 | disposition home or self-care (01) ==
PROVIDERS: PCP Student in an Organized Health Care Education/Training Program; Visit Provider Family Medicine Addiction Medicine
DX: M54.12 Radiculopathy, cervical region (principal); M25.511 Pain in right shoulder; M47.812 Spondylosis without myelopathy or radiculopathy, cervical region; Z51.89 Encounter for other specified aftercare
CPT/HCPCS: 97035; 97140; 97162